=== PATIENT | male | born 1985 | race Caucasian/White ===

== ENCOUNTER → 2018-02-02 12:48 | Outpatient (CLI) | payer OTHER, MEDICARE, SELFPAY ==
--- NOTE | 2018-02-02 13:10 | IR_ITS ---
XR 2 view 2-3V lumbar spine, IR Myelogram Spine -Thoracic, IR Myelogram Spine- Lumbosacral Ordering Physician: Pablo Wilder Patient Age: 32 years: Male HISTORY: ITS.REASON: PAIN PRE MYLEOGRAM .. Chronic back pain. Increasing back pain recently. Recently pain most severe right buttock region. TECHNIQUE: 1. Lumbar spine AP and lateral 2. Lumbar myelogram with lumbar puncture by Dr. Mustafa . 3. Thoracic myelogram COMPARISON :Previous CT abdomen/pelvis 2015 views of lumbar spine ===== LUMBAR SPINE AP AND LATERAL . This study was performed to see if there are any new features, establish baseline and to evaluate the depth for the needle placement for LP. Sacralization at L4/5 to the left again noted. The patient has a stimulator device overlying the left buttock. This is again noted and was it appears similar to previous studies. Leads from this extend thoracic spine . There are also some other smaller thin wire-like areas seen overlying the back previous device . Also note the patient has had a ventral hernia repair with associated findings. LUMBAR MYELOGRAM. Lumbar puncture performed by Dr. Mustafa radiology. 3 minute 3 seconds fluoroscopy time utilized for both the lumbar and thoracic myelogram . Following sterile preparation and local skin anesthesia as well as deep Xylocaine, lumbar puncture performed under fluoroscopy at the L4/5 level . Isovue M 200 utilized. Total ~r 25 cc in this large patient this study both lumbar and thoracic spine. The lumbar myelogram shows no prominent findings. The rightward exiting nerve roots appear normal. Unremarkable. On the left the is a very minor suspect disc bulge left at L4/5 slightly indenting anterior thecal sac. This is actually very near the needle myelogram needle entry site THORACIC MYELOGRAM. Contrast was directed towards the thoracic spine. Using multiple maneuvers.-With patient prone we tilted the table downward with to its maximum point. We also used the patient laying lateral physician as well as patient turning from prone to supine position in order to direct contrast towards the upper thoracic canal.. Subsequent thoracic CT is most useful in evaluating the thoracic canal and provides visualization to the thoracic spine. Current plain films do demonstrate the neural stimulator device posterior to the T8-9 level. Just inferior to this we would note that there is a indentation upon the thecal sac due to the small leftward disc protrusion at T11-12. Noted on subsequent CT.. . IMPRESSION: ...... 1. Initial 2 view lumbar spine: demonstrates the stimulator device overlying the left buttock with leads extending superiorly. Sacralization of L5 to the left again noted.. Narrowing at L5/S1 again noted. & Anatomy stable since prior old studies studies 2. LUMBAR MYELOGRAM: shows only very slight epidural indentation to left at L4/5 level. Slightly less filling of the nerve root sleeve here. This corresponds mild leftward disc bulge L4/5 seen best on on subsequent CT. (I would also note that this was near the region of the lumbar puncture). 3. THORACIC MYELOGRAM performed but the thoracic CT images are much more optimal for evaluation here.. Thoracic myelogram images do show epidural indentation from the small disc protrusion at T11/12 level. The other minimal features are better visualized on the CT. 4. spinal stimulator device is seen posterior to the T8 & T9 level
--- NOTE | 2018-02-02 13:11 | CT_ITS ---
CT thoracic spine wo con, post myelogram CT lumbar spine wo con ; post myelogram CT sacrum included Ordering Physician: Pablo Wilder Patient Age: 32 years: Male HISTORY: ITS.REASON: THORACIC AND LUMBAR PAIN Patient describes recent severe pain right buttock. Different from a patient's chronic back pain. Patient has spinal stimulator TECHNIQUE: Thin section axial helical CT scanning performed through the thoracic & lumbar spine. CT imaging 20 minutes subsequent to lumbar/thoracic myelogram procedure, performed by Dr. Mustafa\ From the acquired thin section sagittal and coronal and thickened axial reconstruction images performed on CT workstation as well as and lies on the radiologist workstation. . All CT scans at this facility used one or more dose reduction techniques , viz: automatic exposure control, ma/Kv adjustment per patient's size, (including targeted exam where dose matched to the indication; i.e. head); or iterative reconstruction technique COMPARISON :2008 CT thoracic & lumbar spine FINDINGS The sacrum included, appears intact and stable down to S5 level. The patient does have generous caliber foramen at the sacrum, symmetric bilaterally with no remarkable tarlov cyst or other features associated. Mild sclerosis reflecting mild chronic changes margins SI joints bilaterally. . hypertrophic facet changes seen bilaterally particularly at L4/5 L3/4. Progression of facet arthropathy most pronounced to the right at L4/5 L5 is transitional in nature: sacralization on left; lumbarization on right. No 5/S1 disc space reflects this transitional character. No disc bulge or protrusion. Mild sclerosis about this pseudarthrosis is similar to previous 2008 exam. L4/5.* leftward disc bulge/with perhaps broad-based mild disc protrusion here to the left. Features do indent thecal sac the left particularly anterior left corner of thecal sac. Features encroach upon the left foramen. In 2009 there was a mild central disc bulge at this level. . Scant epidural contrast overlying thecal sac to the left recent procedure. This may also yield less filling of the left L4 nerve root Also Very subtle vertical line at base of L5 pedicle bilaterally was seen on previous CT abdomen reconstructions December 2015. Appears stable and likely related to vascular channel on corresponding axial image L3/4 stable mild leftward eccentric disc bulge, most evident towards left foramen.. L2/3. Disc intact L1/2 disc intact. T12/L1. Minor disc space narrowing The thoracic cord appears normal in caliber and signal. Conus ends appropriately L1 T11/12..* Broadbase, small Mixed disc protrusion leftward. Left Midline & left paracentral; indenting the thecal sac & just abutting the anterior aspect of lower thoracic cord. There is been Slight progression small undulating hard disc to the left since 2009 CT... w More evident Schmorl's node defect at the posterior superior endplate T12 T10/11. Disc intact. Neural foramen unremarkable. T9/10.: Disc intact T8/9.: Mild disc space narrowing, but disc Intact along its posterior margin . Neurostimulator device is seen overlying the thecal sac at midline at T8 and T9 with lead passing between the T9 &-T10 spinous processes T 7/8: Scant tiny hard disc to left, very slightly indents thecal sac the left T6/7: minimal hard disc to the right paracentral. Very slightly indents thecal sac to the right laterally T5/6: disc intact T 4/5:.*Broad-based hard disc to left, & left paracentral-slightly indents thecal sac leftward T3/4. The sagittal view nicely demonstrates a small/moderate midline central disc protrusion.. Does abut & mildly effacing the cervical cord at midline T2/3. Mild mixed mainly hard disc midline & to the left, mildly indents theca
[2018-02-02 14:53] LABS: Glucose,CSF 62 mg/dL (40-70); Total Protein,CSF 41.2 mg/dL (15-45)
[2018-02-02 15:55] LABS: Appearance,CSF Clear (Clear); Red Blood Cell,CSF 2 cells/uL (0); Volume,CSF 4.5 mL; White Blood Cell,CSF 1 cells/uL (0-5)
[2018-02-02 16:02] LABS: Mononuclear WBCs,CSF 0 %; Polynuclear WBCs,CSF 100 %
== END ==
PROVIDERS: Family Provider Family Medicine; PCP Surgery; Visit Provider Orthopaedic Surgery
DX: M54.6 Pain in thoracic spine (principal); M54.5 Low back pain
CPT/HCPCS: 62303; 62304; 72100; 72128; 72129; 72131; 72132; 82945; 84155; 89051; Q9966

== ENCOUNTER → 2018-04-23 10:02 | Outpatient (CLI) | payer OTHER, MEDICARE, SELFPAY ==
--- NOTE | 2018-04-23 10:04 | NM_ITS ---
NM gastric emptying study CLINICAL INDICATION: Vomiting upon awakening with stomach pain ITS.REASON: possible gastroparesis ORDERING PHYSICIAN: Avinash Loyd MD PATIENT AGE: 32 years Comparison: None DOSE: 0.60 mCi technetium sulfa colloid in radio labeled meal. FINDINGS: One half emptying time is within normal limits at 78 minutes. 43% gastric contents had emptied at 89 minutes. Images submitted show no evidence of reflux IMPRESSION: One half empty in time is within normal limits at 78 minutes. Normal equals 60 +/- 30 minutes. Previous exam of 02/01/2014 showed a one half emptying time of 42 minutes. Although the imaging time is within normal limits in has increased since the previous exam
--- NOTE | 2018-04-23 10:25 | HMH.ITSHM ---
pramipexole naproxen gabapentin carvedilol bupropion [facility]
[2018-04-23 12:32] LABS: Basophils % 0.6 % (0.1-2.0); Eosinophils # 0.1 K/mm3 (0.0-0.4); Eosinophils % 1.6 % (0.1-12.0); Hematocrit 50.3 % (42.0-52.0); Hemoglobin 16.9 g/dL (14.1-18.0); Lymphocytes # 1.5 K/mm3 (0.7-4.5); Lymphocytes % 26.4 K/mm3 (10-50); Mean Corpuscular HGB Conc 33.5 g/dL (31.8-35.4); Mean Corpuscular Hemoglobin 30.4 pg (27.0-31.2); Mean Corpuscular Volume 90.7 fl (80-94); Mean Platelet Volume 7.7 fl (7.4-10.4); Monocytes # 0.4 K/mm3 (0.1-1.0); Neutrophils # 3.8 K/mm3 (1.8-7.8); Neutrophils % 64.6 % (37.0-80.0); Platelet Count 273 K/mm3 (142-424); Red Blood Count 5.55 M/mm3 (4.60-6.20); Red Cell Distribution Width 13.2 % (11.5-17.5); White Blood Count 5.9 K/mm3 (4.8-10.8)
[2018-04-23 13:35] LABS: Alanine Aminotransferase 33 U/L (12-78); Albumin Level 4.3 gm/dL (3.4-5.0); Albumin/Globulin Ratio 1.5 (1.1-1.8); Alkaline Phosphatase 52 U/L (46-116); Anion Gap 8.5 mEq/L (5-15); Aspartate Amino Transferase 13 U/L (15-37); Bilirubin,Total 0.6 mg/dL (0.2-1.0); Blood Urea Nitrogen 26 mg/dL (7-18); Calcium 9.4 mg/dL (8.5-10.1); Carbon Dioxide 32 mmol/L (21.0-32.0); Chloride 103 mmol/L (98-107); Creatinine,Serum 1.06 mg/dL (0.70-1.30); Estimated Glomerular Filt Rate 80 ml/min (>60); GFR (African American) 97 ML/MIN (>60); Globulin 2.8 gm/dl (1.3-3.2); Glucose 105 mg/dL (74-106); Potassium 4.5 mmoL/L (3.5-5.1); Sodium 139 mmol/L (136-145); Total Protein,Serum 7.1 gm/dL (6.4-8.2)
== END ==
PROVIDERS: Family Provider Family Medicine; PCP Surgery; Visit Provider Surgery
DX: R10.9 Unspecified abdominal pain (principal)
CPT/HCPCS: 36415; 78264; 80053; 85025; A9541

== ENCOUNTER 2023-11-14 08:04 | Emergency (ER) | payer BC, MEDICARE, SELFPAY ==
[2023-11-14 08:30] VITALS: BP 138/77; PULSE 91; RESP 19; TEMP 36.7; O2SAT 97; BMI 40.4
[2023-11-14 08:47] LABS: Coronavirus 19, PCR Not Detected (NotDetected); Influenza A, PCR Not Detected (NotDetected); Influenza B, PCR Not Detected (NotDetected)
--- NOTE | 2023-11-14 09:18 | EXP.UTC ---
Discharge Plan Disposition Patient Disposition: Home, Self-Care Condition: Good Prescriptions Prescriptions: New methylprednisolone [Medrol (Jerad)] 4 mg tablets,dose pack See Rx Instructions .Route .COMPLEX 6 Days Qty: 21 0RF Rx Instructions: taper pack; guaifenesin [Mucinex] 600 mg tablet extended release 12hr 1,200 mg PO BID PRN (Reason: cough) Qty: 20 0RF azithromycin [Zithromax Z-Jerad] 250 mg tablet See Rx Instructions .ROUTE .COMPLEX 5 Days Qty: 6 0RF Rx Instructions: For 250 mg dose pack: take 500 mg today (day 1), then 250 mg for 4 days (days 2-5) No Action esomeprazole magnesium [Nexium] 40 mg capsule,delayed release(DR/EC) 40 mg PO DAILY naproxen 500 mg tablet 500 mg PO BID gabapentin [Neurontin] 600 mg tablet 600 mg PO DAILY diazepam [Valium] 2 mg tablet 2 mg PO BID cholecalciferol (vitamin D3) 50,000 unit capsule 50,000 unit PO QWEEK pramipexole [Mirapex] 0.5 mg tablet 0.5 mg PO QHS carvedilol [Coreg] 25 mg tablet 25 mg PO BID sertraline [Zoloft] 100 mg tablet 100 mg PO DAILY bupropion HCl [Wellbutrin XL] 300 mg tablet extended release 24 hr 300 mg PO DAILY furosemide 10 mg/mL solution 10 mg PO DAILY cyclobenzaprine 5 mg tablet 5 mg PO TID PRN Referrals Follow up/Referrals: Kat Mars MD [Primary Care Provider] - See instructions Activity Restrictions/Add. Instructions Additional Instructions/Restrictions: Start antibiotic today. Be sure to complete entire prescription even if feeling better Monitor temp. Tylenol every 4 hours as needed and / or ibuprofen every 6 hours as needed ( As long as your primary care physician has told you that it ok to take both. For fever/aches/pains ER if no less than 101 despite Tylenol or Motrin Humidifier/vaporizer or hot steamy shower Inhaler every 4-6 hours as needed like we discussed. If unsure how to use it, ask pharmacist to demonstrate how. Should help open airways and improve cough, wheezing, and shortness of breath Mucinex for your cough Be sure to drink lots of water. *Start steroid today. Helps with inflammation therefore, cough and wheezing. Follow directions on the package. Reviewed side effects. Patient reports taking them before. Follow up IMMEDIATELY for new or worsening of symptoms OR no noticeable improvement over the next 48-72 hours. 911 immediately for any life threatening symptoms such as chest pain or difficulty breathing Clinical Impressions Clinical Impression: Sinusitis, Bronchitis Instructions Patient Instructions: DI for Sinusitis, Acute Bronchitis Discharge ED Provider[place] [facility] [place] General Stated complaint: congestion, Mode of Arrival: Ambulatory Source of Information: Patient Limitations: No Limitations Time Seen by Provider: 11/14/23 09:18 Description of Symptoms (Recalled from Triage Doc. by RN): PATIENT C/O CHEST CONGESTION, PRODUCTIVE COUGH, AND NO TASTE/SMELL X 1 WEEK HEENT Symptoms (Recalled from RN notes): Yes Resp Symptoms (Recalled from RN notes): Yes Skin Symptoms (Recalled from RN notes): No MS Symptoms (Recalled from RN notes): No Functional Status (Recalled from RN notes): WNL History of Present Illness Provider Complaint: Patient states that he has been sick for over a week States that he has been having sinus congestion, chest congestion, productive cough at time and now loosing his voice States he has been taking mucinex but not got any better Related Data Home Medications Medication Instructions Recorded Confirmed bupropion HCl 300 mg 24 hr tablet, 300 mg PO DAILY 04/15/18 02/16/19 extended release (Wellbutrin XL) carvedilol 25 mg tablet (Coreg) 25 mg PO BID 04/15/18 02/16/19 cholecalciferol (vitamin D3) 1,250 50,000 unit PO QWEEK 04/15/18 02/16/19 mcg (50,000 unit) capsule cyclobenzaprine 5 mg tablet 5 mg PO TID PRN 04/15/18 02/16/19 diazepam 2 mg tablet (Valium) 2 mg PO BID 04/15/18 02/16/19 esomeprazole magnesium 40 mg 40 mg PO DAILY 04/15/18 02/16/19 capsule,delayed release (Nexium) furosemide 10 mg/mL oral solution 10 mg PO DAILY 04/15/18 02/16/19 gabapentin 600 mg tablet 600 mg PO DAILY 04/15/18 02/16/19 (Neurontin) naproxen 500 mg tablet 500 mg PO BID 04/15/18 02/16/19 pramipexole 0.5 mg tablet (Mirapex) 0.5 mg PO QHS 04/15/18 02/16/19 sertraline 100 mg tablet (Zoloft) 100 mg PO DAILY 04/15/18 02/16/19 Previous Rx's Medication Instructions Recorded azithromycin 250 mg tablet See Rx Instructions PO .COMPLEX 5 11/14/23 (Zithromax Z-Jerad) days #6 tabs guaifenesin 600 mg tablet, 1,200 mg (2 x 600 mg) PO BID PRN 11/14/23 extended release 12 hr (Mucinex) cough #20 tabs methylprednisolone 4 mg tablets in See Rx Instructions .Route 11/14/23 a dose pack (Medrol (Jerad)) .COMPLEX 6 days #21 tabs Allergies Allergy/AdvReac Type Severity Reaction Status Date / Time oxycodone [From OXYCONTIN] Allergy Mild Verified 02/16/19 09:12 Penicillins Allergy Mild Verified 02/16/19 09:12 Worker's Comp Is this a Worker's Comp case?: No [facility] Disclaimer: The information contained in this section may have been updated after the patient was seen, as this information can be updated by other users. Social History Smoking Status: Never smoker alcohol intake: never current occupational status: unemployed Travel in the last 8 weeks: None ROS Obtained: Yes All systems reviewed & no additional complaints except as documented and Yes Systems reviewed as appropriate & no additional complaints except as documented Constitutional Constitutional: Reports system reviewed and no additional complaints, except as documented, Reports as per HPI and Reports headache(s) ENT Ears, Nose, Mouth, and Throat: Reports system reviewed and no additional complaints, except as documented, Reports as per HPI, Reports headache(s), Reports sinus pain, Reports sinus pressure and Reports sore throat Cardiovascular Cardiovascular: Reports system reviewed and no additional complaints, except as documented and Reports as per HPI Respiratory Respiratory: Reports system reviewed and no additional complaints, except as documented, Reports as per HPI, Denies shortness of breath, Reports chest congestion and Reports cough Gastrointestinal Gastrointestingal: Reports system reviewed and no additional complaints, except as documented and as per HPI Neurologic Neurologic: Reports headache(s) Physical Exam General General appearance: alert and in no apparent distress ENT ENT exam: Present mucous membranes moist Expanded ENT Exam Nose exam: Present sinus tenderness Throat exam: Present other (Pharyngeal erythema noted with PND) Respiratory Respiratory exam: Present normal lung sounds bilaterally; Absent respiratory distress or wheezes Cardiovascular Cardiovascular exam: Present regular rate, normal rhythm and normal heart sounds Abdominal Exam Abdominal exam: Present soft and normal bowel sounds; Absent distention or tenderness Neurological Exam Neurological exam: Present alert, oriented X3 and normal gait Medical Decision Making George Inquiry Pt receiving controlled substance: No George was queried for this patient: No Vital Signs: 11/14/23 08:30 Temperature 98.1 F Temperature Source Oral Pulse Rate [Left Brachial] 91 H Respiratory Rate 19 Blood Pressure [Left Arm] 138/77 Blood Pressure Mean [Left Arm] 97 Blood Pressure Source [Left Arm] Automatic Cuff Blood Pressure Position [Left Arm] Sitting 02 Sat by Pulse Oximetry 97 Oxygen Delivery Method Room Air Lab Data Lab results reviewed: Yes I reviewed the patient's lab results. Orders (Tests/Meds): ORDERS Category Date Time Status Rapid PCR Covid and Flu A/B Stat Lab 11/14/23 08:34 Received Medical Decision Narrative: Patient states that he is a diabetic but has taken azithromycin and Medrol in the past without complications or reactions
[2023-11-14 09:31] VITALS: BP 138/77; PULSE 91; RESP 19; TEMP 36.7; O2SAT 97
== END 2023-11-14 09:36 | disposition home or self-care (01) ==
PROVIDERS: Emergency Provider Nurse Practitioner; PCP Family Medicine
DX: J40 Bronchitis, not specified as acute or chronic (principal); J01.90 Acute sinusitis, unspecified; R05.9 Cough, unspecified; R09.81 Nasal congestion; R43.9 Unspecified disturbances of smell and taste; R51.9 Headache, unspecified
CPT/HCPCS: 87636; 99204; 99212; G0463

== ENCOUNTER 2024-08-22 08:25 | Emergency (ER) | payer OTHER, MEDICARE, SELFPAY ==
[2024-08-22 08:45] VITALS: BP 148/94; PULSE 79; RESP 19; TEMP 36.9; O2SAT 98; BMI 41.6
--- NOTE | 2024-08-22 09:01 | ED_ITS ---
Discharge Plan Disposition Patient Disposition: Home, Self-Care Condition: Good Prescriptions Prescriptions: New azithromycin [Zithromax Z-Jerad] 250 mg tablet See Rx Instructions .ROUTE .COMPLEX 5 Days Qty: 6 0RF Rx Instructions: For 250 mg dose pack: take 500 mg today (day 1), then 250 mg for 4 days (days 2-5) benzonatate 100 mg capsule 100 mg PO TID PRN (Reason: cough) Qty: 30 0RF No Action azithromycin [Zithromax Z-Jerad] 250 mg tablet See Rx Instructions .ROUTE .COMPLEX 5 Days Qty: 6 0RF Rx Instructions: For 250 mg dose pack: take 500 mg today (day 1), then 250 mg for 4 days (days 2-5) cyclobenzaprine 10 mg tablet 10 mg PO TID Patient Comments: TAKE 1 TABLET 3 TIMES A DAY BY ORAL ROUTE NEEDED. carvedilol 25 mg tablet 25 mg PO BID Patient Comments: TAKE 1 TABLET BY MOUTH TWICE A DAY famotidine 40 mg tablet 40 mg PO DAILY Patient Comments: TAKE 1 TABLET BY MOUTH EVERY EVENING NEEDED sertraline 100 mg tablet 100 mg PO DAILY trazodone 100 mg tablet 100 mg PO HS Patient Comments: TAKE 2 TABLETS BY MOUTH NEEDED AT BEDTIME ropinirole 0.25 mg tablet 0.25 mg PO HS Patient Comments: TAKE 1 TABLET BY MOUTH ONCE DAILY FOR 2 DAYS, THEN INCREASE TO 2 TABLETS DAILY lisinopril 10 mg tablet 10 mg PO DAILY Patient Comments: TAKE 1 TABLET BY MOUTH EVERY DAY metformin 500 mg tablet extended release 24 hr 2,000 mg PO HS Patient Comments: TAKE 4 TABLETS BY MOUTH EVERY DAY AT BEDTIME rosuvastatin 10 mg tablet 10 mg PO PM Patient Comments: TAKE 1 TABLET BY MOUTH EVERY DAY IN THE EVENING Referrals Follow up/Referrals: Provider,Referral, MD [Primary Care Provider] - See instructions Activity Restrictions/Add. Instructions Additional Instructions/Restrictions: *Monitor Temp, Over the counter Motrin or Tylenol as directed/as needed Tylenol every 4 hours and Motrin every 6 hours (as long as your family doctor has told you that you can take it) for fever or pain. and straight to ER if unable to lower temp less than 101.0 after medication given *Warm salt water gargles may help to soothe the throat *Throat Lozenges? *Warm fluids like tea with honey may help to soothe the throat? *Sleep elevated *Humidifier/Vaporizer Take medication as prescribed Your throat swab was sent for culture. Those results are typically sent to your primary care. Be sure to follow up in 2-3 days with your family doctor/primary care physician if no improvement so they can review those result and treat if necessary. If you don?t have a primary care doctor, I recommend you get one but in the mean time, you will have to return to a walk in clinic Follow up IMMEDIATELY for new or worsening symptoms or no Noticeable improvement over the next 48-72 hours. 911 for difficulty breathing or swallowing Clinical Impressions Clinical Impression: Otitis media Instructions Patient Instructions: Middle Ear Infection, Sore Throat Print Language Print Language: Uzbek Discharge ED Provider: [place] Yip [facility] [place] General Stated complaint: congestion, weakness, cough Mode of Arrival: Ambulatory Source of Information: Patient Limitations: No Limitations Time Seen by Provider: 08/22/24 09:01 Description of Symptoms (Recalled from Triage Doc. by RN): PATIENT C/O CONGESTION, SORE THROAT, COUGH, NO ENERGY AND RIGHT EAR PAIN X 3 DAYS HEENT Symptoms (Recalled from RN notes): Yes Resp Symptoms (Recalled from RN notes): Yes Skin Symptoms (Recalled from RN notes): No MS Symptoms (Recalled from RN notes): No Functional Status (Recalled from RN notes): WNL History of Present Illness Provider Complaint: Patient states that for the last 3-4 days he has been having pain in his right ear, sore throat, body aches and fatigue States that he has also had a cough and at times coughing up some mucous so today when he was still not feeling any better he came in to get checked Related Data Home Medications ?Medication ?Instructions ?Recorded ?Confirmed carvedilol 25 mg tablet 25 mg PO BID 08/22/24 08/22/24 cyclobenzaprine 10 mg tablet 10 mg PO TID 08/22/24 08/22/24 famotidine 40 mg tablet 40 mg PO DAILY 08/22/24 08/22/24 lisinopril 10 mg tablet 10 mg PO DAILY 08/22/24 08/22/24 metformin 500 mg tablet,extended 2,000 mg PO HS 08/22/24 08/22/24 release 24 hr ropinirole 0.25 mg tablet 0.25 mg PO HS 08/22/24 08/22/24 rosuvastatin 10 mg tablet 10 mg PO PM 08/22/24 08/22/24 sertraline 100 mg tablet 100 mg PO DAILY 08/22/24 08/22/24 trazodone 100 mg tablet 100 mg PO HS 08/22/24 08/22/24 Previous Rx's ?Medication ?Instructions ?Recorded azithromycin 250 mg tablet See Rx Instructions PO .COMPLEX 5 08/22/24 (Zithromax Z-Jerad) days #6 tabs benzonatate 100 mg capsule 100 mg PO TID PRN cough #30 caps 08/22/24 Allergies Allergy/AdvReac Type Severity Reaction Status Date / Time oxycodone (From OXYCONTIN) Allergy Mild Verified 02/16/19 09:12 Penicillins Allergy Mild Verified 02/16/19 09:12 Worker's Comp Is this a Worker's Comp case?: No [facility] Disclaimer: The information contained in this section may have been updated after the patient was seen, as this information can be updated by other users. Social History Smoking Status: Never smoker alcohol intake: never current occupational status: unemployed Travel in the last 8 weeks: None Have you lived/traveled outside [place] in past 30 days?: No Contact w/someone who lives/traveled outside US past 30 days?: No Exposure to someone with infectious disease in past 14 days?: No Do you have a fever (greater than 100.4 F or 38 C)?: No Have you tested positive for COVID-19: No Exposed to someone with COVID-19 in past 14 days?: No Do you have a sore throat?: Yes Do you have a cough?: Yes Do you have any weakness?: No Do you have any diarrhea?: No Are you experiencing any unusual bleeding?: No Do you have any muscle aches/pain?: No Do you have any abdominal pain?: No Are you experiencing loss of taste or smell?: No ROS Obtained: Yes All systems reviewed & no additional complaints except as documented and Yes Systems reviewed as appropriate & no additional complaints except as documented Constitutional Constitutional: Reports system reviewed and no additional complaints, except as documented, Reports as per HPI, Reports body ache, Reports chills and Reports headache(s) ENT Ears, Nose, Mouth, and Throat: Reports system reviewed and no additional complaints, except as documented, Reports as per HPI, Reports otalgia, Reports headache(s), Reports nasal congestion, Reports nasal discharge and Reports sore throat Cardiovascular Cardiovascular: Reports system reviewed and no additional complaints, except as documented and Reports as per HPI Respiratory Respiratory: Reports system reviewed and no additional complaints, except as documented, Reports as per HPI, Denies shortness of breath and Reports cough Neurologic Neurologic: Reports headache(s) Physical Exam General General appearance: alert and in no apparent distress ENT ENT exam: Present mucous membranes moist Expanded ENT Exam TM/Canal exam: Right TM: erythema and bulging Nose exam: Present sinus tenderness Throat exam: Present other (Pharyngeal erythema noted with PND) Respiratory Respiratory exam: Present normal lung sounds bilaterally; Absent respiratory distress or wheezes Cardiovascular Cardiovascular exam: Present regular rate, normal rhythm and normal heart sounds Abdominal Exam Abdominal exam: Present soft and normal bowel sounds; Absent distention or tenderness Neurological Exam Neurological exam: Present alert, oriented X3 and normal gait Medical Decision Making Medical Records Screening: Per USPSTF and CDC recommendations, given the prevalence of disease in our region, it is our hospital?s policy to screen for HIV and viral Hepatitis for all patients aged 18 and over and those with ongoing risk factors. George Inquiry Pt receiving controlled substance: No George was queried for this patient: No Vital Signs: 08/22/24 08:45 Temperature 98.4 F Temperature Source Oral Pulse Rate [Left Brachial] 79 Respiratory Rate 19 Blood Pressure [Left Arm] 148/94 H Blood Pressure Mean [Left Arm] 112 Blood Pressure Source [Left Arm] Automatic Cuff Blood Pressure Position [Left Arm] Sitting 02 Sat by Pulse Oximetry 98 Oxygen Delivery Method Room Air Lab Data Lab results reviewed: Yes I reviewed the patient's lab results.
[2024-08-22 09:07] LABS: UTC Strep Screen (Rapid) Negative (Negative)
[2024-08-22 09:08] LABS: UTC Influenza A Antigen Negative (Negative); UTC Influenza B Antigen Negative (Negative)
[2024-08-22 09:09] VITALS: BP 148/94; PULSE 79; RESP 19; TEMP 36.9; O2SAT 98
== END 2024-08-22 09:12 | disposition home or self-care (01) ==
PROVIDERS: Emergency Provider Nurse Practitioner
DX: H66.93 Otitis media, unspecified, bilateral (principal)
CPT/HCPCS: 87804; 87880; 99213; G0381

== ENCOUNTER 2024-09-04 09:12 | Emergency (ER) | payer OTHER, MEDICARE, SELFPAY ==
[2024-09-04 09:35] VITALS: BP 140/80; PULSE 91; RESP 18; TEMP 36.8; O2SAT 97; BMI 40.6
--- NOTE | 2024-09-04 09:52 | ED_ITS ---
Discharge Plan Disposition Patient Disposition: Home, Self-Care Condition: Good Prescriptions Prescriptions: New cefdinir 300 mg capsule 300 mg PO BID 10 Days Qty: 20 0RF ciprofloxacin-dexamethasone 0.3-0.1 % drops,suspension 4 drp otic (ear) BID 7 Days Qty: 7.5 0RF Rx Instructions: in left ear as directed No Action bupropion HCl 300 mg tablet extended release 24 hr 300 mg PO fluticasone propionate 50 mcg/actuation spray,suspension 1 spray intranasal Patient Comments: SPRAY 1 SPRAY BY INTRANASAL ROUTE EVERY DAY cyclobenzaprine 10 mg tablet 10 mg PO TID Patient Comments: TAKE 1 TABLET 3 TIMES A DAY BY ORAL ROUTE NEEDED. carvedilol 25 mg tablet 25 mg PO BID Patient Comments: TAKE 1 TABLET BY MOUTH TWICE A DAY famotidine 40 mg tablet 40 mg PO DAILY Patient Comments: TAKE 1 TABLET BY MOUTH EVERY EVENING NEEDED sertraline 100 mg tablet 100 mg PO DAILY trazodone 100 mg tablet 100 mg PO HS Patient Comments: TAKE 2 TABLETS BY MOUTH NEEDED AT BEDTIME ropinirole 0.25 mg tablet 0.25 mg PO HS Patient Comments: TAKE 1 TABLET BY MOUTH ONCE DAILY FOR 2 DAYS, THEN INCREASE TO 2 TABLETS DAILY lisinopril 10 mg tablet 10 mg PO DAILY Patient Comments: TAKE 1 TABLET BY MOUTH EVERY DAY metformin 500 mg tablet extended release 24 hr 2,000 mg PO HS Patient Comments: TAKE 4 TABLETS BY MOUTH EVERY DAY AT BEDTIME rosuvastatin 10 mg tablet 10 mg PO PM Patient Comments: TAKE 1 TABLET BY MOUTH EVERY DAY IN THE EVENING Referrals Follow up/Referrals: Sekou Pal MD [Primary Care Provider] - See instructions Activity Restrictions/Add. Instructions Additional Instructions/Restrictions: Take medication as prescribed Use ear drops as prescribed Follow up with your Family doctor if no improvement Clinical Impressions Clinical Impression: Otitis media Instructions Patient Instructions: Ear Infections (Alternative Therapy), Middle Ear Infection Print Language Print Language: Mosotho Discharge ED Provider: [place] Yip [facility] General Stated complaint: sore throat, bilateral ear pain Mode of Arrival: Ambulatory Source of Information: Patient Limitations: No Limitations Time Seen by Provider: 09/04/24 09:52 Description of Symptoms (Recalled from Triage Doc. by RN): PATIENT C/O SORE THROAT, EAR PAIN, BODY ACHES AND WEAKNESS HEENT Symptoms (Recalled from RN notes): Yes Resp Symptoms (Recalled from RN notes): No Skin Symptoms (Recalled from RN notes): No MS Symptoms (Recalled from RN notes): No Functional Status (Recalled from RN notes): WNL History of Present Illness Provider Complaint: Patient states that he had ear infection a couple weeks ago and now the pain moved to the left ear and having sore throat and sinus congestion States today he was still not feeling any better and has completed his zpack Related Data Home Medications ?Medication ?Instructions ?Recorded ?Confirmed carvedilol 25 mg tablet 25 mg PO BID 08/22/24 09/02/24 cyclobenzaprine 10 mg tablet 10 mg PO TID 08/22/24 09/02/24 famotidine 40 mg tablet 40 mg PO DAILY 08/22/24 09/02/24 lisinopril 10 mg tablet 10 mg PO DAILY 08/22/24 09/02/24 metformin 500 mg tablet,extended 2,000 mg PO HS 08/22/24 09/02/24 release 24 hr ropinirole 0.25 mg tablet 0.25 mg PO HS 08/22/24 09/02/24 rosuvastatin 10 mg tablet 10 mg PO PM 08/22/24 09/02/24 sertraline 100 mg tablet 100 mg PO DAILY 08/22/24 09/02/24 trazodone 100 mg tablet 100 mg PO HS 08/22/24 09/02/24 bupropion HCl 300 mg 24 hr tablet, 300 mg PO 09/02/24 09/02/24 extended release fluticasone propionate 50 1 spray intranasal 09/02/24 09/02/24 mcg/actuation nasal spray,suspension Previous Rx's ?Medication ?Instructions ?Recorded cefdinir 300 mg capsule 300 mg PO BID 10 days #20 caps 09/04/24 ciprofloxacin 0.3 %-dexamethasone 4 drp otic (ear) BID 7 days #7.5 mL 09/04/24 0.1 % ear drops,suspension Allergies Allergy/AdvReac Type Severity Reaction Status Date / Time oxycodone (From OXYCONTIN) Allergy Mild Verified 09/02/24 09:57 Penicillins Allergy Mild Verified 09/02/24 09:57 Worker's Comp Is this a Worker's Comp case?: No [facility] Disclaimer: The information contained in this section may have been updated after the patient was seen, as this information can be updated by other users. Medical History (Updated 09/04/24 @ 10:01 by [place] Yip APRN) Hypertension Hyperlipidemia Diabetes mellitus History of inguinal hernia Surgical History (Updated 09/02/24 @ 10:00 by Meseret Solorzano) History of back surgery History of tonsillectomy History of cholecystectomy Family History (Updated 09/02/24 @ 10:01 by Meseret Solorzano) Grandfather Cancer Grandfather Lupus Grandmother Diabetes Social History (Updated 09/02/24 @ 10:02 by Meseret Solorzano) Smoking Status: Never smoker second hand exposure: No alcohol intake: never substance use type: denies use current occupational status: disabled Travel in the last 8 weeks: None household members: spouse and children housing: house marital status: Have you lived/traveled outside US in past 30 days?: No Contact w/someone who lives/traveled outside US past 30 days?: No Exposure to someone with infectious disease in past 14 days?: No Do you have a fever (greater than 100.4 F or 38 C)?: No Have you tested positive for COVID-19: No Exposed to someone with COVID-19 in past 14 days?: No Do you have a sore throat?: Yes Do you have a cough?: No Do you have any weakness?: No Do you have any diarrhea?: No Are you experiencing any unusual bleeding?: No Do you have any muscle aches/pain?: No Do you have any abdominal pain?: No Are you experiencing loss of taste or smell?: No ROS Obtained: Yes All systems reviewed & no additional complaints except as documented and Yes Systems reviewed as appropriate & no additional complaints except as documented Constitutional Constitutional: Reports system reviewed and no additional complaints, except as documented and Reports as per HPI ENT Ears, Nose, Mouth, and Throat: Reports system reviewed and no additional complaints, except as documented, Reports as per HPI, Reports otalgia, Reports nasal congestion and Reports sore throat Cardiovascular Cardiovascular: Reports system reviewed and no additional complaints, except as documented and Reports as per HPI Respiratory Respiratory: Reports system reviewed and no additional complaints, except as documented and Reports as per HPI Gastrointestinal Gastrointestingal: Reports system reviewed and no additional complaints, except as documented and as per HPI Musculoskeletal Musculoskeletal: Reports system reviewed and no additional complaints, except as documented and Reports as per HPI Physical Exam General General appearance: alert and in no apparent distress ENT ENT exam: Present mucous membranes moist Expanded ENT Exam TM/Canal exam: Left TM: bulging and Bilateral TM: erythema (worse on left) Respiratory Respiratory exam: Present normal lung sounds bilaterally; Absent respiratory distress or wheezes Cardiovascular Cardiovascular exam: Present regular rate, normal rhythm and normal heart sounds Abdominal Exam Abdominal exam: Present soft and normal bowel sounds; Absent distention or tenderness Neurological Exam Neurological exam: Present alert, oriented X3 and normal gait Medical Decision Making Medical Records Screening: Per USPSTF and CDC recommendations, given the prevalence of disease in our region, it is our hospital?s policy to screen for HIV and viral Hepatitis for all patients aged 18 and over and those with ongoing risk factors. George Inquiry Pt receiving controlled substance: No George was queried for this patient: No Vital Signs: 09/04/24 09:35 Temperature 98.3 F Temperature Source Oral Pulse Rate [Left] 91 H Respiratory Rate 18 Blood Pressure [Left Arm] 140/80 Blood Pressure Mean [Left Arm] 100 Blood Pressure Source [Left Arm] Automatic Cuff Blood Pressure Position [Left Arm] Sitting 02 Sat by Pulse Oximetry 97 Oxygen Delivery Method Room Air Lab Data Lab results reviewed: Yes I reviewed the patient's lab results. Medical Decision Narrative: Patient states that he is allergic to PCN but has taken Cefdnir in the past without reactions or complications
[2024-09-04 09:57] LABS: UTC Strep Screen (Rapid) Negative (Negative)
[2024-09-04 10:02] VITALS: BP 140/80; PULSE 91; RESP 18; TEMP 36.8; O2SAT 97
== END 2024-09-04 10:04 | disposition home or self-care (01) ==
PROVIDERS: Emergency Provider Nurse Practitioner; PCP Family Medicine
DX: H66.93 Otitis media, unspecified, bilateral (principal)
CPT/HCPCS: 87880; 99213; G0381

== ENCOUNTER 2024-12-14 10:25 | Outpatient (CLI) | payer OTHER, MEDICARE, SELFPAY ==
[2024-12-14 16:37] LABS: Basophils # 0.1 K/mm3 (0-0.2); Basophils % 0.9 % (0.1-2.0); Eosinophils # 0.2 K/mm3 (0.0-0.4); Eosinophils % 4.2 % (0.1-12.0); Hematocrit 46.1 % (42.0-52.0); Lymphocytes # 1.5 K/mm3 (0.7-4.5); Lymphocytes % 26.7 % (10-50); Mean Corpuscular HGB Conc 32.5 g/dL (31.8-35.4); Mean Corpuscular Volume 92.2 fl (80-94); Mean Platelet Volume 11.3 fl (7.4-10.4); Monocytes # 0.4 K/mm3 (0.1-1.0); Monocytes % 6.4 % (1.7-9.3); Neutrophils # 3.4 K/mm3 (1.8-7.8); Neutrophils % 61.4 % (37.0-80.0); Nucleated Red Blood Cells # 0 10^3/uL; Nucleated Red Blood Cells % 0 %; Platelet Count 182 K/mm3 (142-424); Red Cell Distribution Width 12.9 % (11.5-17.5); Red Cell Distribution Width-SD 43.9 fL; White Blood Count 5.5 K/mm3 (4.8-10.8)
[2024-12-14 17:04] LABS: Alanine Aminotransferase 79 U/L (12-78); Albumin Level 4.3 g/dl (3.5-5.0); Albumin/Globulin Ratio 1.4 (1.1-1.8); Alkaline Phosphatase 75 U/L (38-126); Anion Gap 16.5 mEq/L (5-15); Aspartate Amino Transferase 104 U/L (17-59); Bilirubin,Total 0.6 mg/dl (0.2-1.3); Blood Urea Nitrogen 9 mg/dl (9-20); Carbon Dioxide 29 mmol/L (22.0-30.0); Chloride 96 mmol/L (98-107); Chol/HDL Ratio 3.5 (1-3.5); Cholesterol 98 mg/dl (140-200); Estimated Glomerular Filt Rate 148 ml/min (>60); GFR (African American) 180 ML/MIN (>60); Glucose 192 mg/dl (74-100); HDL Cholesterol 28 mg/dl (40-60); Potassium 4.5 mmoL/L (3.5-5.1); Sodium 137 mmol/L (136-145); Total Protein,Serum 7.3 g/dl (6.3-8.2); Triglycerides 309 mg/dl (30-150); VLDL Cholesterol 62 mg/dL (0-40)
[2024-12-14 17:08] LABS: Hemoglobin A1C 8.4 % (4.0-6.0)
[2024-12-14 17:21] LABS: T4 (Thyroxine) 11.2 ug/dl (5.53-11.0)
[2024-12-14 17:22] LABS: 25-OH Vitamin D, Total 26.9 ng/mL (30-100)
[2024-12-14 17:34] LABS: Thyroid Stimulating Hormone 1.59 uIU/mL (0.465-4.68)
[2024-12-14 17:49] LABS: HIV Combo NEGATIVE (Negative)
[2024-12-14 17:56] LABS: Hepatitis C Ab Qual. W/ RFX NEGATIVE (Negative)
[2024-12-14 18:44] LABS: Direct LDL Cholesterol 32.21 mg/dL (100-129)
== END 2024-12-14 23:59 | disposition home or self-care (01) ==
LOC: LAB.DROPOF 12-15 10:13
PROVIDERS: PCP Nurse Practitioner Family; Visit Provider Nurse Practitioner Family
DX: Z11.4 Encounter for screening for human immunodeficiency virus [HIV] (principal); E78.5 Hyperlipidemia, unspecified; I10 Essential (primary) hypertension; E11.9 Type 2 diabetes mellitus without complications; Z98.890 Other specified postprocedural states; Z79.84 Long term (current) use of oral hypoglycemic drugs; Z79.85 Long-term (current) use of injectable non-insulin antidiabetic drugs; Z68.41 Body mass index [BMI] 40.0-44.9, adult; E66.9 Obesity, unspecified
CPT/HCPCS: 80053; 80061; 82306; 83036; 84436; 84443; 85025; 86803; 87389

== ENCOUNTER 2025-03-28 10:00 | Outpatient (CLI) | payer OTHER, MEDICARE, SELFPAY ==
--- OUTSIDE RECORDS SUMMARY | 2025-03-29 12:28 | XMS_ITS | Patient Health Record ---
Author Organization [facility]Magdiel Anguiano MD Address [address] [place] [address] Care Team Providers Care Foundry Technician Name Role Phone Dr Michael Reis JR Primary Care Provid er Unavailable Magdiel Anguiano Unavailable [phone] Allergies Allergen (clinical drug ingredient) Drug/Non Drug Allergy documented on EMR Reaction Allergy Type Onset Date Status penicillin V Penicillin V Potassium rash Drug Allergy Active Reason For Referral No Information Medications Medication SIG (Take, Route, Frequency, Duration) Notes Start Date End Date Status Ativan 1 MG 1 tablet 1 hr prior to test Orally qd; Duration: 1 dose 05/05/2013 Active Valium 10 MG 1 tablet as needed O rally 10mg 1hr prior to procedure 01/14/2013 Active Problems Problem Type SNOMED Code ICD Code Onset Dates Problem Status W/U Status Risk Notes Problem Macroglossia (90187145) Macroglossia (750.15) Active confirmed Problem Hypertension (56980439) Hypertension (401.9) Active confirmed Problem Laryngopharyngeal reflux (324970268) Laryngopharyngeal reflux (LPR) (478.79) Active confirmed Problem Obesity (399876285) Obesity (278.00) Active con firmed Problem Hypersomnia with sleep apnea (61827796) Sleep apnea with hypersomnolence (780.53) Active confirmed Plan Of Treatment No Information Insurance Providers Payer Name Payer Address Payer Phone Subscriber Number Group Number Insured Name Patient Relationship to Insured Coverage Start Date Coverage End Date MEDICARE [place] [address] [place] [address] [place] [address] [id number] Po Shanks Self - patient is the insured Medical (General) History Medical History History ICD Code Thyroid Disease No hypertension Yes asthma No Diabetes No Diabetes Insulin Dependent No Heart Disease No Cancer No lung cancer No kidney stones No Surgical History Surgery Date(Month/Year) tonsillectomy Prostate Urinary/Kidney Spine
--- OUTSIDE RECORDS SUMMARY | 2025-03-29 12:28 | XMS_ITS | Referral Summary ---
Author Organization [employer] ([place], [place], [place], [place]) Address [address] [place] [address] Care Team Providers Care Community Leader Name Role Phone Unavailable Primary Care Provider Unavailabl e Social History Tobacco Use Types Packs/Day Years Used Date Smoking Tobacco: Never Assessed Food Insecurity Answer Date Recorded Food run out past 12 months Not on file 06/01 Food did not last past 12 months Not on file 06/10/2024 Employment Answer Date Recorded Help finding and keeping a job Not on file 1 Family and Community Support Answer Kd e Recorded Help with Day to Day Activities Not on file 06/10/2024 Feeling Lonely or Isolated Not on file 06/10 Educational Attainment Answer Date Pablo rded Speak language other than Kuwaiti at home Not on file 06/10/2024 Want help with school or training Not on file 06/10/2024 Substance Use Answer Date Recorded Used prescription meds for non-medical reasons N ot on file 06/10/2024 Used illegal drugs past 12 months Not on file 06/10/2024 Sex and Gender Information Value Date Recorded Sex Assigned at Not on file Legal Sex Male 6:05 PM CDT Gender Identity Not on file Sexual Orientation Not on file Plan of Treatment Not on file Insurance [facility] CHOICE PLUS MEDICARE PART A B
--- OUTSIDE RECORDS SUMMARY | 2025-03-29 12:28 | XMS_ITS | Encounter Summary ---
Author Organization [employer] ([place], [place], [place], [place]) Address [address] [place] [address] Care Team Providers Care Foster Winder Name Role Phone Unavailable Primary Care Provider Unavailabl e Reason for Referral * Diagnostic X-Ray (Routine) - Closed Specialty Diagnoses / Procedures Referred By Contac t Referred To Contact Diagnoses Calculus of kidney Procedures X-ray abdomen KUB 1 view Jorge Quintero Jr., MD [address] [place] [address] [address] [place] [id number] Phone: tel: fax: Referral ID Status Reason Start Date Expiration Date Visits Re quested Visits Authorized [id number] Closed 06/10/2024 06/10/2025 1 1 Encounter Details Date Type Department Care Team (Late st Contact Info) Description 06/10/2024 Outside Orders [facility] [place] [facility] [address] [place] [address] [address] [place] [phone] Jorge Quintero Jr., MD [address] [place] [address] [address] [place] [id number] Calculus of kidney (Primary Dx) Social History Tobacco Use Types Packs/Day Years [...] Date Pablo rded Speak language other than Tristanian at home Not on file 06/10/2024 Want [...] on file Sexual Orientation Not on file documented as of this encounter Plan of Treatment Not on file documented as of this encounter Results * X-ray abdomen KUB 1 view (06/10/2024 10:35 AM EDT) Anatomical Region Laterality Modality Abdomen X-Ray 06/10/2024 12:1 3 PM EDT Impressions 06/10/2024 12:27 PM EDT No radioopaque upper urinary tract stones. Images reviewed, interpreted, and dictated by Dr. Praveen Bonner. Transcribed by Pastora Stein PA-C. Narrative 06/10/2024 12:27 PM EDT KUB HISTORY: Nephrolithiasis. COMPARISON: None. FINDINGS: A single view of the abdomen with a coned-down of the pelvis demonstrates an unremarkable bowel gas pattern. No abnormal calcifications are identified over the renal shadows or course of the ureters. Status post ventral hernia repair. There is a thoracic spine stimulator noted. There are multiple right upper quadrant surgical clips consistent with cholecystectomy. Procedure Note Praveen Bonner MD - 06/10/2024 KUB HISTORY: Nephrolithiasis. COMPARISON: None. FINDINGS: A single view of the abdomen with a coned-down of the pelvis demonstrates an unremarkable bowel gas pattern. No abnormal calcifications are identified over the renal shadows or course of the ureters. Status post ventral hernia repair. There is a thoracic spine stimulator noted. There are multiple right upper quadrant surgical clips consistent with cholecystectomy. IMPRESSION: No radioopaque upper urinary tract stones. Images reviewed, interpreted, and dictated by Dr. Praveen Bonner. Transcribed by Pastora Stein PA-C. us Jorge Quintero Jr., MD [facility] ORDERABLES Final Result documented in this encounter Visit Diagnoses Diagnosis Calculus of kidney- Primary Calculus of kidney documented in this encounter
--- OUTSIDE RECORDS SUMMARY | 2025-03-29 12:28 | XMS_ITS | Clinical Summary ---
Author Organization [facility] Address [address] [place] [address] Care Team Providers Care C 13 Catapult Operator Name Role Phone Sanjeev Solitario MD Primary Care Provider [phone] Family History Medical History Relation Name Comments Hypercholesterolemia Father Cardiac disorder Maternal Grandmother Diabetes Maternal Grandmother Relation Name Status Comments Father Maternal Grandmother Social History Tobacco Use Types Packs/Day Years Used Date Smoking Tobacco: Never Alcohol Use Standard Drinks/Week Comments No 0 (1 standard drink = 0.6 oz pur e alcohol) Sex and Gender Information Value Date Recorded Sex Assigned at Not on file Legal Sex Male 7:58 PM EDT Gender Identity Not on file Sexual Orientation Not on file Last Filed Vital Signs Vital Sign Reading Time Taken Comments Blood Pressure - - Pulse - - Temperature - - Respiratory Rate - - Oxygen Saturation - - Inhaled Oxygen Concentration - - Weight 150 kg (330 lb 1.2 oz) 03/29/2015 8:36 AM EDT Height 190.5 cm (6' 3 ) 03/29/2015 8:36 AM EDT Body Mass Index 41.26 03/29/2015 8:36 AM EDT Plan of Treatment Not on file Care Teams C 13 Catapult Operator Relationship Specialty Start Date End Date Sanjeev Solitario MD [address] [place] [id number] PCP - General 01/12/21
--- OUTSIDE RECORDS SUMMARY | 2025-03-29 12:28 | XMS_ITS | Clinical Summary ---
Author Organization [employer] ([place], [place], [place], [place]) Address [address] [place] [address] Care Team Providers Care Tipping Machine Operator Name Role Phone Unavailable Primary Care Provider [...] Date Pablo rded Speak language other than Malawian at home Not on file 06/10/2024 Want [...] Orientation Not on file Plan of Treatment Health Maintenance Due Date Last Done Comments Depression Screening (12+) 1995 Tobacco Cessation Counseling and Screening (12+) 1995 HIV Screening 1998 Hepatitis C Screening 2001 Medicare Initial AWV [id number] 10/03/2012 Lipid Panel 2018 COVID-19 VACCINE (3 - 4-2 5 season) 2024 11/15/2020, 10/18/2020 Influenza Vaccine (#1) 2025 DTAP/TDAP/TD VACCINES (3 - T d or Tdap) 12/26/2030 12/26/2020, 05/22/1998 Pneumococcal Vaccine: 0-49 Years Aged Out No longer eligible b ased on patient's age to complete this topic Insurance [facility] CHOICE PLUS MEDICARE PART A B
--- OUTSIDE RECORDS SUMMARY | 2025-03-29 12:28 | XMS_ITS | Clinical Summary ---
Author Organization [facility] Address [address] [place] [address] Phone Care Team Providers Care Quickbooks Bookkeeper Name Role Phone Unavailable Primary Care Provider Unavailabl e Allergies Active Allergy Reactions Criticality Noted Date Comments Oxycodone Hcl Nausea And Vomiting 07/24/2010 Oxycodone Nausea And Vomiting 07/24/2010 Penicillins Nausea And Vomiting 07/24/2010 Penicillin V potassium Medications carisoprodol (SOMA) 350 mg tablet Take 350 mg by mouth 4 times daily as needed for Muscle spasms. 2 tablets Active gabapentin (NEURONTIN) 800 mg tablet Take 800 mg by mouth 3 times daily. 2 tablets Active diazepam (VALIUM) 5 mg tablet Take by mouth 4 times daily. Active methadone (DOLOPHINE) 10 mg tablet Take 6 Tabs by mouth 2 times daily. Active Milnacipran (SAVELLA) 100 mg Tab Take 100 mg by mouth 2 times daily. Active trazodone (DESYREL) 100 mg tablet Take 2 Tabs by mouth nightly. Active valacyclovir (VALTREX) 1 g tablet Take by mouth daily. Active bisoprolol (ZEBETA) 5 mg tablet Take 5 mg by mouth daily. Active ESOMEPRAZOLE MAG TRIHYDRATE (NEXIUM ORAL) Take 40 mg by mouth 2 times daily. Active pramipexole (MIRAPEX) 0.5 mg tablet Take 0.5 mg by mouth nightly. Active multivitamin (THERAGRAN) per tablet Take 1 Tab by mouth daily. Active Surgical History Surgery Date Site/Laterality Comments TONSILLECTOMY CHOLECYSTECTOMY BACK SURGERY spinal cord stimulators x4 Medical History Medical History Date Comments Hypertension Acid reflux RSD lower limb Left leg Depression Anxiety Social History Tobacco Use Types Packs/Day Years Used Date Smoking Tobacco: Never Alcohol Use Standard Drinks/Week Comments No 0 (1 standard drink = 0.6 oz pur e alcohol) Sex and Gender Information Value Date Recorded Sex Assigned at Not on file Legal Sex Male 12:49 AM EDT Gender Identity Not on file Sexual Orientation Not on file Obstetrics History Last Filed Vital Signs Vital Sign Reading Time Taken Comments Blood Pressure 126/80 07/25/2010 8:52 AM EST Pulse 100 07/25/2010 8:50 AM EST Temperature 36.3 C (97.4 F) 07/24/2010 11:17 PM EST Respiratory Rate 18 07/25/2010 8:50 AM EST Oxygen Saturation 92% 07/25/2010 2:00 AM EST Inhaled Oxygen Concentration - - Weight 123 kg (271 lb 3 oz) 07/24/2010 6:[address] Height 190.5 cm (6' 3 ) 07/24/2010 6:31 PM EST Body Mass Index 33.9 07/24/2010 6:31 PM EST Plan of Treatment Health Maintenance Due Date Last Done Comments Annual Wellness Exam 1986 DTaP/TDaP/Td (1 - Tdap) 2002 Hepatitis B Vaccine (1 of 3 - 19+ 3-dose series) 2002 COVID-19 Vaccine ( - 2023-2 5 season) 2024 Influenza Vaccine (#1) 2025 Meningococcal B Vaccine Aged Out No l onger eligible based on patient's age to complete this topic Pneumococcal Vaccine 0-49 Aged Out No longer eligible based on patient's age to complete this topic Insurance PPO
--- OUTSIDE RECORDS SUMMARY | 2025-03-29 12:29 | XMS_ITS | Data Portability ---
Author Organization [facility] MIYA Garvin [place] CLOS[place] Address [address] [place] [address] Care Team Providers Care Community Associate Name Role Phone VAISHALI PICKETT Primary Care Provider KELI VILLEGAS Soda Tester VAISHALI PICEKTT Referring Provider Assessment No assessment recorded. Plan of Treatment Reminders Order Date Submit Date Provider Last Modified By Organization Details Last Modified Time Details Appointments None recorded . Lab urinalys is panel, auto 2023 024 [facility], [address], [address], [place], [address], 4 17:58:34 urinalys is, microsco pic 2023 024 [facility], [address] [place] [address], [address], 4 18:03:19 lipid panel, serum 2023 024 [facility], [address] [place] [address], [address], 4 15:10:30 CMP, serum or plasma 2023 024 [facility], [address] [place] [address], [address], 4 15:10:28 urinalys is, dipstick 2023 [email or web address] [facility] [place], [address] [place] [address], [address], 4 09:56:02 glycohem oglobin, total, blood 2023 024 [facility], [address] [place] [address], [address], 4 13:17:02 Referral None recorded . Procedures None recorded . Surgeries None recorded . Imaging XR, abdomen, 1 view 2023 024 [email or web address] [facility] [place], [address] [place] [address], [address], 5 15:24:05 Medication Orders doxycycl ine monohydr ate [address] [facility], [address] [place], [address], 4 17:58:34 fluticas one propiona te 50 mcg/actu ation nasal spray,bustamante spension [address] [facility], [address] [place], [address], 4 09:56:11 trazodon e 100 mg tablet [address] [facility]016, [address] [place], [address], 4 09:56:12 doxycycl ine hyclate 100 mg tablet 2023 024 [email or web address] [facility]3016, [address] [place], [address], 4 14:13:29 cycloben zaprine 10 mg tablet [address] [facility], [address] [place], [address], 4 09:56:18 pramipex ole [address] [facility], [address] [place], [address], 4 09:56:21 ondanset pankaj 4 mg disinteg rating tablet [address] [facility], [address] [place], [address], 4 09:56:12 carvedil ol 25 mg tablet [address] [facility], [address] [place], [address], 4 09:56:16 lisinopr il 10 mg tablet [address] [facility], [address] [place], [address], 4 09:56:23 sertrali ne 100 mg tablet [address] [facility], [address] [place], [address], 4 09:56:22 Wellbutr in XL 300 mg 24 hr tablet, extended release 2023 024 [email or web address] [facility] #[facility]016, [address] [place], [address], 4 13:17:49 metformi n ER 500 mg tablet,e xtended release [address] [facility], [address] [place], [address], 4 09:56:22 Ozempic 0.25 mg or 0.5 mg (2 mg/3 mL) subcutan eous pen injector [address] [facility], [address] [place], [address], 4 09:56:11 Ozempic 1 mg/dose (4 mg/3 mL) subcutan eous pen injector [address] [facility]016, [address] [place], [address], 4 09:56:22 famotidi ne [address] [facility], [address] [place], [address], 4 09:56:19 Nexium 40 mg capsule, delayed release [address] [facility], [address] [place], [address], 4 09:56:19 ropiniro le 0.[address] [facility], [address] [place], [address], 4 14:34:12 Patient TargetsNo targets recorded. Patient Instructions Encounter Date Encounter Id Patient Instructions Last Modified By Organization Details Last Modified Time 03/02/2024 [id number] f/u 8-12 weeks aerwin Not available 03/03/2024 12:05:34 03/15/2024 [id number] [facility] sumansky Not availa ble 03/15/2024 08:40:25 05/04/2024 [id number] 1. GERD: Continu e to take current medication and follow GERD precautions, discussed with the patient long-term use of Nexium might decrease chance of having osteoporosis chronic kidney disease and vitamin B12 deficiency. 2. Anxiety depression: Continue to take current medication and follow lifestyle changes, if you develop any suicidal or homicidal ideation to call 911 go to the ER. 3. Chronic low back pain: Not interested to be referred to pain management or to physical therapy can take cyclobenzaprine as needed cyclobenzaprine might make him drowsy and should not take it if planning to drive operate heavy machinery. 4. Insomnia: Use trazodone as needed, follow sleep hygiene. 5. Allergic rhinitis: Use fluticasone nasal spray as needed not to use it more than 2 months at 1 time. 6. Restless leg syndrome: Continue to take his medication, limit caffeine intake specially second half of the day and exercise. 7. Hypertension: taker his medication, follow low-salt diet, check blood pressure occasion bring a log blood pressure to next visit. 8. Morbid obesity: Cut the calories by 500-calorie day to lose 1 and half pound per week and exercise. 9. Nausea and occasional vomiting; urged patient to reschedule appointment with GI for further evaluation and management.. 10. Obstructive sleep apnea: Advised patient to continue to follow-up with the specialist and use CPAP machine. 11. Diabetes mellitus type 2: Continue to take current medication and start on Ozempic patient aware about possible side effects, follow diabetic diet and check hemoglobin A1c. 12. Carpal tunnel left side: Advised to avoid repetitive movements over the left arm, use wrist brace follow-up with orthopedics as recommended before or as needed. 13. Give patient flu shot and COVID-vaccine today. 14. Acute prostatitis/history of recurrent prostatitis: Use doxycycline as directed discussed with the patient with precautions with taking doxycycline send urine for microscopy and culture if indicated and follow-up with urology for further evaluation and management. 15. Hyperlipidemia: Advised patient follow low-fat diet we will check lipid panel and CMP. 16. Follow up in 3-4 days if no improvement 3 months or or as needed, if condition gets worse go to ER or come back to clinic. [email or web address] Not available 05/06/2024 21:16:39 Reason for Referral None Reported. Results Created Date Observation Date Name Description Value Unit Range Abnormal Flag Note LastModifiedBy Organization Detail LastModifiedTime 02/02/20 24 02/02/2024 GLYCO HEMOG LOBIN A1C glyco HGB A1C 6.4 % 0.0-5. 6 high Not Available [facility] [address] [place], [address], 02/02/2024 13:26:20 02/02/20 24 02/02/2024 GLYCO HEMOG LOBIN A1C estimated avg. glucose 137 mg/dL _(rox c) normal A1c value s betwe en 5.7% to 6.4% indic ate predi abete s. Resul ts 6.5% or great er is diagn ostic of diabe lara. Ameri can Diabe lara Assoc iatio n (diab etes. org) Not Available [facility] [address] [place] [address], [address], 02/02/2024 13:26:20 02/02/20 24 02/02/2024 MICRO ALBUM IN/CR EAT RATIO microalbumin , random 12 mg/L 0-19 normal Not Available [facility] [address] [place] [address], [address], 02/02/2024 14:05:14 02/02/20 24 02/02/2024 MICRO ALBUM IN/CR EAT RATIO creatinine,u r,random 143 mg/dL normal NO ANASTASIYA L RANGE ESTAB LISHE D FOR RANDO M URINE . Not Available [facility] [address] [place] [address], [address], 02/02/2024 14:05:14 02/02/20 24 02/02/2024 MICRO ALBUM IN/CR EAT RATIO MA/creatinin e ratio see below mcg/m g_cre at 0-29 normal Unabl e to calcu late micro album in/cr eatin ine ratio . Not Available [facility] [address] [place] [address], [address], 02/02/2024 14:05:14 02/02/20 24 02/02/2024 GENER AL HEALT H PANEL glucose 138 mg/dL 74-100 high Not Available [facility] [address] [place] [address], [address], 02/02/2024 17:17:02/02/20 24 02/02/2024 GENER AL HEALT H PANEL blood urea nitrogen 9 mg/dL 6-20 normal Not Available [facility] [address] [place] [address], [address], 02/02/2024 17:17:02/02/20 24 02/02/2024 GENER AL HEALT H PANEL creatinine 0.84 mg/dL 0.70-1 .28 normal Not Available [facility] [address] [place] [address], [address], 02/02/2024 17:17:02/02/20 24 02/02/2024 GENER AL HEALT H PANEL BUN/creatini ne ratio 11 (calc ) 10-20 normal Not Available [facility] [address] [place] [address], [address], 02/02/2024 17:17:02/02/20 24 02/02/2024 GENER AL HEALT H PANEL sodium 138 mmol/ L 136-14 5 normal Not Available [facility] [address] [place] [address], [address], 02/02/2024 17:17:02/02/20 24 02/02/2024 GENER AL HEALT H PANEL potassium 4.8 mmol/ L 3.4-5. 0 normal Not Available [facility] [address] [place] [address], [address], 02/02/2024 17:17:02/02/20 24 02/02/2024 GENER AL HEALT H PANEL chloride 98 mmol/ L 98-107 normal Not Available [facility] [address] [place] [address], [address], 02/02/2024 17:17:02/02/20 24 02/02/2024 GENER AL HEALT H PANEL carbon dioxide 31 mmol/ L 22-31 normal Not Available [facility] [address] [place] [address], [address], 02/02/2024 17:17:02/02/20 24 02/02/2024 GENER AL HEALT H PANEL anion gap 9 (calc ) 7-25 normal Not Available [facility] [address] [place] [address], [address], 02/02/2024 17:17:02/02/20 24 02/02/2024 GENER AL HEALT H PANEL calcium 9.2 mg/dL 8.6-10 .2 normal Not Available [facility] [address] [place] [address], [address], 02/02/2024 17:17:02/02/20 24 02/02/2024 GENER AL HEALT H PANEL total protein 7.5 g/dL 6.4-8. 3 normal Not Available [facility] [address] [place] [address], [address], 02/02/2024 17:17:02/02/20 24 02/02/2024 GENER AL HEALT H PANEL albumin 4.4 g/dL 3.5-5. 2 normal Not Available [facility] [address] [place] [address], [address], 02/02/2024 17:17:02/02/20 24 02/02/2024 GENER AL HEALT H PANEL globulin 3.1 1.5-4. 5 normal Not Available [facility] [address] [place] [address], [address], 02/02/2024 17:17:02/02/20 24 02/02/2024 GENER AL HEALT H PANEL albumin/glob ulin ratio 1.4 (calc ) 1.1-2. 5 normal Not Available [facility] [address] [place] [address], [address], 02/02/2024 17:17:02/02/20 24 02/02/2024 GENER AL HEALT H PANEL bilirubin, total 0.3 mg/dL 0.1-1. 2 normal Not Available [facility] [address] [place], [address], 02/02/2024 17:17:02/02/20 24 02/02/2024 GENER AL HEALT H PANEL alkaline phosphatase 57 U/L 40-129 normal Not Available [facility] [address] [place], [address], 02/02/2024 17:17:02/02/20 24 02/02/2024 GENER AL HEALT H PANEL AST 39 U/L 0-40 normal Not Available [facility] [address] [place], [address], 02/02/2024 17:17:02/02/20 24 02/02/2024 GENER AL HEALT H PANEL ALT 60 U/L 0-41 high Not Available [facility] [address] [place], [address], 02/02/2024 17:17:02/02/20 24 02/02/2024 GENER AL HEALT H PANEL GFR 113 >= 60 normal NOT E New calcu latio n for GFR (CKD- EPI 2020) is formu lated witho ut race adjus tment facto rs at the recom menda tion of the Zeke Couch y Elvin atcandis and Ameri alexandr [facility] . This calcu latio n has not been valid ated in pregn ant women . For pedia tric patie nts refer to https ://tomas w.zane restrepo.o rg/pr preston chirinosal s/KDO QI/gf r_cal culat orPed Not Available [facility] [address] [place], [address], 02/02/2024 17:17:02/02/20 24 02/02/2024 GENER AL HEALT H PANEL white blood cells 6.2 10*3/ uL 3.8-10 .8 normal Not Available [facility] [address] [place], [address], 02/02/2024 17:17:06 02/02/20 24 02/02/2024 GENER AL HEALT H PANEL red blood cells 5.18 10*6/ uL 4.20-5 .80 normal Not Available [facility] [address] [place] [address], [address], 02/02/2024 17:17:06 02/02/20 24 02/02/2024 GENER AL HEALT H PANEL hemoglobin 15.8 g/dL 14.0-1 8.0 normal Not Available [facility] [address] [place] [address], [address], 02/02/2024 17:17:06 02/02/20 24 02/02/2024 GENER AL HEALT H PANEL hematocrit 47.2 % 40.0-5 2.0 normal Not Available [facility] [address] [place] [address], [address], 02/02/2024 17:17:02/02/20 24 02/02/2024 GENER AL HEALT H PANEL MCV 91 fL 80-100 normal Not Available [facility] [address] [place] [address], [address], 02/02/2024 17:17:06 02/02/20 24 02/02/2024 GENER AL HEALT H PANEL MCH 31 pg 26-35 normal Not Available [facility] [address] [place] [address], [address], 02/02/2024 17:17:02/02/20 24 02/02/2024 GENER AL HEALT H PANEL MCHC 34 g/dL 32-36 normal Not Available [facility] [address] [place] [address], [address], 02/02/2024 17:17:06 02/02/20 24 02/02/2024 GENER AL HEALT H PANEL RDW 13.8 % 11.0-1 5.0 normal Not Available [facility] [address] [place] [address], [address], 02/02/2024 17:17:02/02/20 24 02/02/2024 GENER AL HEALT H PANEL MPV 8.8 fL 6.2-10 .5 normal Not Available [facility] [address] [place] [address], [address], 02/02/2024 17:17:06 02/02/20 24 02/02/2024 GENER AL HEALT H PANEL platelet count 219 10*3/ uL 150-40 0 normal Not Available [facility] [address] [place] [address], [address], 02/02/2024 17:17:06 02/02/20 24 02/02/2024 GENER AL HEALT H PANEL neutrophil,a bsolute 3.7 10*3/ uL 1.6-8. 4 normal Not Available [facility] [address] [place] [address], [address], 02/02/2024 17:17:06 02/02/20 24 02/02/2024 GENER AL HEALT H PANEL lymphocyte,a bsolute 1.7 10*3/ uL 0.4-5. 1 normal Not Available [facility] [address] [place] [address], [address], 02/02/2024 17:17:02/02/20 24 02/02/2024 GENER AL HEALT H PANEL monocyte,abs olute 0.4 10*3/ uL 0.0-1. 2 normal Not Available [facility] [address] [place] [address], [address], 02/02/2024 17:17:02/02/20 24 02/02/2024 GENER AL HEALT H PANEL eosinophil,a bsolute 0.3 10*3/ uL 0.0-0. 8 normal Not Available [facility] [address] [place] [address], [address], 02/02/2024 17:17:06 02/02/20 24 02/02/2024 GENER AL HEALT H PANEL basophil,abs olute 0.0 10*3/ uL 0.0-0. 3 normal Not Available [facility] [address] [place] [address], [address], 02/02/2024 17:17:02/02/20 24 02/02/2024 GENER AL HEALT H PANEL % neutrophils 60.2 % 42.0-7 8.0 normal Not Available [facility] [address] [place] [address], [address], 02/02/2024 17:17:02/02/20 24 02/02/2024 GENER AL HEALT H PANEL % lymphocytes 28.2 % 11.0-4 7.0 normal Not Available [facility] [address] [place] [address], [address], 02/02/2024 17:17:02/02/20 24 02/02/2024 GENER AL HEALT H PANEL % monocytes 6.5 % 0.0-11 .0 normal Not Available [facility] [address] [place] [address], [address], 02/02/2024 17:17:02/02/20 24 02/02/2024 GENER AL HEALT H PANEL % eosinophils 4.4 % 0.0-7. 0 normal Not Available [facility] [address] [place] [address], [address], 02/02/2024 17:17:02/02/20 24 02/02/2024 GENER AL HEALT H PANEL % basophils 0.7 % 0.0-3. 0 normal Not Available [facility] [address] [place] [address], [address], 02/02/2024 17:17:02/02/20 24 02/02/2024 GENER AL HEALT H PANEL nucleated red cells 0.0 % 0.0-0. 9 normal Not Available [facility] [address] [place] [address], [address], 02/02/2024 17:17:06 02/02/20 24 02/02/2024 GENER AL HEALT H PANEL nucleated RBCs, absolute 0.00 10*3/ uL not estab. normal Not Available [facility] [address] [place] [address], [address], 02/02/2024 17:17:06 02/02/20 24 02/02/2024 GENER AL HEALT H PANEL TSH 0.783 u[IU] /mL 0.270- 4.200 normal Not Available [facility] [address] [place] [address], [address], 02/02/2024 17:17:06 02/02/20 24 02/02/2024 B12/F OLIC ACID PANEL folic acid 11.7 NG/mL 4.6-34 .8 normal Not Available [facility] [address] [place] [address], [address], 02/02/2024 14:38:34 02/02/20 24 02/02/2024 B12/F OLIC ACID PANEL vitamin B12 312 pg/mL 232-12 45 normal Not Available [facility] [address] [place] [address], [address], 02/02/2024 14:38:34 02/02/20 24 02/02/2024 DINO TIN ferritin 206 NG/mL 30-400 normal Not Available [facility] [address] [place] [address], [address], 02/02/2024 17:17:01 02/02/20 24 02/02/2024 LIPID PROFI LE HDL cholesterol 31 mg/dL 40-242 low Not Available [facility] [address] [place] [address], [address], 02/02/2024 17:17:04 02/02/20 24 02/02/2024 LIPID PROFI LE triglyceride s 403 mg/dL 0-149 high TRIGL YCERI DE RANGE S ANASTASIYA L: < 150 BORDE RLINE HIGH: 150 - 199 HIGH: 200 - 499 VERY HIGH: > OR = 500 Not Available [facility] [address] [place] [address], [address], 02/02/2024 17:17:04 02/02/20 24 02/02/2024 LIPID PROFI LE cholesterol 174 mg/dL 0-199 normal SIMA STERO L (TOTA L) RANGE S REEMA ABLE: < 200 BORDE RLINE : 200 - 239 HIGHE R RISK: > 239 Not Available [facility] [address] [place] [address], [address], 02/02/2024 17:17:04 02/02/20 24 02/02/2024 LIPID PROFI LE LDL cholesterol - mg/dL _(rox c) 0-99 abnormal Trigl yceri de resul t is > 400. LDL canno t be calcu lated . LDL SIMA STERO L RANGE S OPTIM AL: < 100 NEAR/ ABOVE OPTIM AL: 100 - 129 BORDE RLINE HIGH: 130 - 159 HIGH: 160 - 189 VERY HIGH: > OR = 190 Not Available [facility] [address] [place] [address], [address], 02/02/2024 17:17:04 05/04/20 24 05/04/2024 GLYCO HEMOG LOBIN A1C glyco HGB A1C 7.5 % 0.0-5. 6 high Not Available [facility] [address] [place] [address], [address], 05/04/2024 13:17:01 05/04/20 24 05/04/2024 GLYCO HEMOG LOBIN A1C estimated avg. glucose 169 mg/dL _(rox c) normal A1c value s betwe en 5.7% to 6.4% indic ate predi abete s. Resul ts 6.5% or great er is diagn ostic of diabe lara. Ameri can Diabe lara Assoc iatio n (diab etes. org) Not Available [facility] [address] [place] [address], [address], 05/04/2024 13:17:01 05/04/20 24 05/04/2024 COMP. METAB OLIC PANEL glucose 209 mg/dL 74-100 high Not Available [facility] [address] [place] [address], [address], 05/04/2024 15:10:28 05/04/20 24 05/04/2024 COMP. METAB OLIC PANEL blood urea nitrogen 15 mg/dL 6-20 normal Not Available [facility] [address] [place] [address], [address], 05/04/2024 15:10:28 05/04/20 24 05/04/2024 COMP. METAB OLIC PANEL creatinine 0.79 mg/dL 0.70-1 .28 normal Not Available [facility] [address] [place] [address], [address], 05/04/2024 15:10:28 05/04/20 24 05/04/2024 COMP. METAB OLIC PANEL BUN/creatini ne ratio 19 (calc ) 10-20 normal Not Available [facility] [address] [place] [address], [address], 05/04/2024 15:10:28 05/04/20 24 05/04/2024 COMP. METAB OLIC PANEL sodium 138 mmol/ L 136-14 5 normal Not Available [facility] [address] [place] [address], [address], 05/04/2024 15:10:28 05/04/20 24 05/04/2024 COMP. METAB OLIC PANEL potassium 4.5 mmol/ L 3.4-5. 0 normal Not Available [facility] [address] [place] [address], [address], 05/04/2024 15:10:28 05/04/20 24 05/04/2024 COMP. METAB OLIC PANEL chloride 100 mmol/ L 98-107 normal Not Available [facility] [address] [place] [address], [address], 05/04/2024 15:10:28 05/04/20 24 05/04/2024 COMP. METAB OLIC PANEL carbon dioxide 29 mmol/ L 22-31 normal Not Available [facility] [address] [place] [address], [address], 05/04/2024 15:10:28 05/04/20 24 05/04/2024 COMP. METAB OLIC PANEL anion gap 9 (calc ) 7-25 normal Not Available [facility] [address] [place] [address], [address], 05/04/2024 15:10:28 05/04/20 24 05/04/2024 COMP. METAB OLIC PANEL calcium 9.1 mg/dL 8.6-10 .2 normal Not Available [facility] [address] [place] [address], [address], 05/04/2024 15:10:28 05/04/20 24 05/04/2024 COMP. METAB OLIC PANEL total protein 6.6 g/dL 6.4-8. 3 normal Not Available [facility] [address] [place] [address], [address], 05/04/2024 15:10:28 05/04/20 24 05/04/2024 COMP. METAB OLIC PANEL albumin 4.0 g/dL 3.5-5. 2 normal Not Available [facility] [address] [place] [address], [address], 05/04/2024 15:10:28 05/04/20 24 05/04/2024 COMP. METAB OLIC PANEL globulin 2.6 1.5-4. 5 normal Not Available [facility] [address] [place] [address], [address], 05/04/2024 15:10:28 05/04/20 24 05/04/2024 COMP. METAB OLIC PANEL albumin/glob ulin ratio 1.5 (calc ) 1.1-2. 5 normal Not Available [facility] [address] [place] [address], [address], 05/04/2024 15:10:28 05/04/20 24 05/04/2024 COMP. METAB OLIC PANEL bilirubin, total 0.3 mg/dL 0.1-1. 2 normal Not Available [facility] [address] [place] [address], [address], 05/04/2024 15:10:28 05/04/20 24 05/04/2024 COMP. METAB OLIC PANEL alkaline phosphatase 57 U/L 40-129 normal Not Available [facility] [address] [place] [address], [address], 05/04/2024 15:10:28 05/04/20 24 05/04/2024 COMP. METAB OLIC PANEL AST 28 U/L 0-40 normal Not Available [facility] [address] [place] [address], [address], 05/04/2024 15:10:28 05/04/20 24 05/04/2024 COMP. METAB OLIC PANEL ALT 43 U/L 0-41 high Not Available [facility] [address] [place] [address], [address], 05/04/2024 15:10:28 05/04/20 24 05/04/2024 COMP. METAB OLIC PANEL GFR 115 >= 60 normal NOT E New calcu latio n for GFR (CKD- EPI 2020) is formu lated witho ut race adjus tment facto rs at the recom menda tion of the Zeke Couch y Elvin atcandis and Baudilio Gan ty of Nephr ology . This calcu latio n has not been valid ated in pregn ant women . For pedia tric patie nts refer to https ://tomas restrepo.o rg/pr ofess ional s/KDO QI/gf r_cal culat orPed Not Available [facility] [address] [place] [address], [address], 05/04/2024 15:10:28 05/04/20 24 05/04/2024 LIPID PROFI LE HDL cholesterol 27 mg/dL 40-242 low Not Available [facility] [address] [place] [address], [address], 05/04/2024 15:10:30 05/04/20 24 05/04/2024 LIPID PROFI LE triglyceride s 570 mg/dL 0-149 high TRIGL YCERI DE RANGE S ANASTASIYA L: < 150 BORDE RLINE HIGH: 150 - 199 HIGH: 200 - 499 VERY HIGH: > OR = 500 Not Available [facility] [address] [place] [address], [address], 05/04/2024 15:10:30 05/04/20 24 05/04/2024 LIPID PROFI LE cholesterol 190 mg/dL 0-199 normal SIMA STERO L (TOTA L) RANGE S REEMA ABLE: < 200 BORDE RLINE : 200 - 239 HIGHE R RISK: > 239 Not Available [facility] [address] [place] [address], [address], 05/04/2024 15:10:30 05/04/20 24 05/04/2024 LIPID PROFI LE LDL cholesterol - mg/dL _(rox c) 0-99 abnormal Trigl yceri de resul t is > 400. LDL canno t be calcu lated . LDL SIMA STERO L RANGE S OPTIM AL: < 100 NEAR/ ABOVE OPTIM AL: 100 - 129 BORDE RLINE HIGH: 130 - 159 HIGH: 160 - 189 VERY HIGH: > OR = 190 Not Available [facility] [address] [place], [address], 05/04/2024 15:10:30 05/04/20 24 05/04/2024 UA MICRO SCOPI C, CULTU RE IF INDIC ATED mucus, urine 3+ /lpf not establ ished normal Not Available [facility] [address] [place] [address], [address], 05/04/2024 18:03:18 05/04/20 24 05/04/2024 UA MICRO SCOPI C, CULTU RE IF INDIC ATED WBC, urine 0-5 0-5/hp f normal Not Available [facility] [address] [place], [address], 05/04/2024 18:03:18 05/04/20 24 05/04/2024 UA MICRO SCOPI C, CULTU RE IF INDIC ATED bacteria Trace /hpf none seen abnormal Occ. sperm atozo a noted . Not Available [facility] [address] [place] [address], [address], 05/04/2024 18:03:18 05/04/20 24 05/04/2024 UA MICRO SCOPI C, CULTU RE IF INDIC ATED reflex culture see below normal UA resul ts do not meet cultu re crite ramesh. Not Available [facility] [place], [address], 05/04/2024 18:03:18 05/04/20 24 05/04/2024 urina lysis , dipst ick Unknown Analyte Straw Not Available [address], [address], 05/04/2024 09:24:52 05/04/20 24 05/04/2024 urina lysis , dipst ick Unknown Analyte Clear Not Available [address], [address], 05/04/2024 09:24:52 05/04/20 24 05/04/2024 urina lysis , dipst ick Unknown Analyte 1.025 Not Available [address], [address], 05/04/2024 09:24:52 05/04/20 24 05/04/2024 urina lysis , dipst ick Unknown Analyte 5.0 Not Available [facility] [address] [place], [address], 05/04/2024 09:24:52 05/04/2005/04/2024 urina lysis , dipst ick Unknown Analyte Negati ve Not Available [address], [address], 05/04/2024 09:24:52 05/04/2005/04/2024 urina lysis , dipst ick Unknown Analyte Negati ve Not Available [address], [address], 05/04/2024 09:24:52 05/04/2005/04/2024 urina lysis , dipst ick Unknown Analyte Negati ve Not Available [address], [address], 05/04/2024 09:24:52 05/04/2005/04/2024 urina lysis , dipst ick Unknown Analyte >1000 mg/dl Not Available [address], [address], 05/04/2024 09:24:52 05/04/2005/04/2024 urina lysis , dipst ick Unknown Analyte Negati ve Not Available [address], [address], 05/04/2024 09:24:52 05/04/2005/04/2024 urina lysis , dipst ick Unknown Analyte 1 mg/dl Not Available [address], [address], 05/04/2024 09:24:52 09/03/20 24 05/04/2024 urina lysis , dipst ick Unknown Analyte 1 mg/dl (+) Not Available [address], [address], 05/04/2024 09:24:52 05/04/20 24 05/04/2024 urina lysis , dipst ick Unknown Analyte 50 Joshua/ul Not Available [address], [address], 05/04/2024 09:24:52 05/04/2005/04/2024 urina lysis , dipst ick Unknown Analyte Clean Catch Not Available [address], [address], 05/04/2024 09:24:52 05/04/20 24 05/04/2024 urina lysis , dipst ick Unknown Analyte Automa brennon Not Available [address], [address], 05/04/2024 09:24:52 06/10/20 24 06/10/2024 urina lysis panel , auto Unknown Analyte Clean Catch Not Available [facility] [address], [place], [address], 06/10/2024 14:15:00 06/10/20 24 06/10/2024 urina lysis panel , auto Unknown Analyte Yellow Not Available [facility] [address], [place], [address], 06/10/2024 14:15:00 06/10/20 24 06/10/2024 urina lysis panel , auto Unknown Analyte Clear Not Available [facility] [address], [place], [address], 06/10/2024 14:15:00 06/10/2006/10/2024 urina lysis panel , auto Unknown Analyte 1.010 Not Available [facility] [address], [place], [address], 06/10/2024 14:15:00 06/10/2006/10/2024 urina lysis panel , auto Unknown Analyte 1.003- 1.035 Not Available [facility] [address], [place], [address], 06/10/2024 14:15:00 06/10/2006/10/2024 urina lysis panel , auto Unknown Analyte 7.0 Not Available [facility] [address], [place], [address], 06/10/2024 14:15:00 06/10/2006/10/2024 urina lysis panel , auto Unknown Analyte 5.0-8. 0 Not Available [facility] [address], [place], [address], 06/10/2024 14:15:00 06/10/2006/10/2024 urina lysis panel , auto Unknown Analyte Negati ve Not Available [facility] [address], [place], [address], 06/10/2024 14:15:00 06/10/2006/10/2024 urina lysis panel , auto Unknown Analyte Negati ve Not Available [facility] [address], [place], [address], 06/10/2024 14:15:00 06/10/2006/10/2024 urina lysis panel , auto Unknown Analyte Negati ve Not Available [facility] [address], [place], [address], 06/10/2024 14:15:00 06/10/2006/10/2024 urina lysis panel , auto Unknown Analyte Negati ve Not Available [facility] [address], [place], [address], 06/10/2024 14:15:00 06/10/2006/10/2024 urina lysis panel , auto Unknown Analyte Negati ve Not Available [facility] [address], [place], [address], 06/10/2024 14:15:00 06/10/2006/10/2024 urina lysis panel , auto Unknown Analyte Negati ve Not Available [facility] [address], [place], [address], 06/10/2024 14:15:00 06/10/2006/10/2024 urina lysis panel , auto Unknown Analyte Normal Not Available [facility] [address], [place], [address], 06/10/2024 14:15:00 06/10/2006/10/2024 urina lysis panel , auto Unknown Analyte Normal Not Available [facility] [address], [place], [address], 06/10/2024 14:15:00 06/10/2006/10/2024 urina lysis panel , auto Unknown Analyte Negati ve Not Available [facility] [address], [place], [address], 06/10/2024 14:15:00 06/10/2006/10/2024 urina lysis panel , auto Unknown Analyte Negati ve Not Available [facility] [address], [place], [address], 06/10/2024 14:15:00 06/10/2006/10/2024 urina lysis panel , auto Unknown Analyte 1 mg/dl Not Available [facility] [address], [place], [address], 06/10/2024 14:15:00 06/10/2006/10/2024 urina lysis panel , auto Unknown Analyte Normal 1 mg/dl Not Available [facility] [address], [place], [address], 06/10/2024 14:15:00 06/10/2006/10/2024 urina lysis panel , auto Unknown Analyte Negati ve Not Available [facility] [address], [place], [address], 06/10/2024 14:15:00 06/10/2006/10/2024 urina lysis panel , auto Unknown Analyte Negati ve Not Available [facility] [address], [place], [address], 06/10/2024 14:15:00 06/10/20 24 06/10/2024 urina lysis panel , auto Unknown Analyte Negati ve Not Available [facility] [address], [place], [address], 06/10/2024 14:15:00 06/10/20 24 06/10/2024 urina lysis panel , auto Unknown Analyte Negati ve Not Available [facility] [address] [facility] [address], [place], [address], 06/10/2024 14:15:00 02/16/20 24 02/16/2024 nerve condu ction study /EMG, upper extre mity (PROC ) No observ ation record ed. Formerly [facility], [facility] Professional Charges [address], [place], [address], 02/17/2024 13:47:16 03/18/20 24 03/18/2024 oxime try monit oring overn ight No observ ation record ed. APURVA Not Available 2023 15:54:39 06/10/20 24 06/10/2024 XR, abdom en, 1 view No observ ation record ed. [facility]) [address], [place], [address], 06/11/2024 15:37:14 Result Notes None recorded. Problems Name Problem SNOMED Code Status Onset Date Resolution Date Notes Provider Name and Address Organization Details Recorded Time Dysuria 06123802 Active 2015 From Automated Load;Prov ider: Clive Nayak Jr atus: Active Not Available [facility] 7 07:22:51 Lower urinary tract symptoms due to benign prostatic hypertrop 81125573839 101 Active 2015 Provider: Clive Nayak Jr atus: Active Not Available [facility] 7 08:24:31 Acute prostatit is 70452491 Active 2015 From Automated Load;Prov ider: Clive Nayak Jr atus: Active Not Available [facility] 7 08:24:31 Syncope 370460111 Active 2016 DIXON FREITAS PA-C [address] [place] [address], [address] , [facility] 7 13:03:17 Chronic back pain 243889362 Active 2020 VAISHALI PICKETT MD [address] [place] [address], [place], [address] , [facility] 08:51:46 Restless legs 95122036 Active 2020 VAISHALI PICKETT MD [address] [place] [address] [place], [address] , [facility] 08:51:47 Mixed anxiety and depressiv e disorder 372804932 Active 2020 VAISHALI PICKETT MD [address] [place] [address] [place], [address] , [facility] 08:51:49 Allergic rhinitis 52798727 Active 2020 VAISHALI PICKETT MD [address] [place] [address] [place], [address] , [facility] 08:51:51 Insomnia 942420610 Active 2020 VAISHALI PICKETT MD [address] [facility] [place], [address] , [facility] 08:51:53 Obstructi ve sleep apnea syndrome 37554530 Active 2020 VAISHALI PICKETT MD [address] [place], [address] , [facility] 08:51:55 Vasovagal syncope 488196458 Active 2022 + [place] [address] [place] [address], [address] , [facility] 3 06:51:04 Supravent ricular tachycard ia 2582819 Active 2022 SYDNEE KEITH MD [address] [place] [address], [address] , [facility] 3 06:51:09 Prostatit is 1283448 Active 2023 JERAD NAYAK JR, MD [address] [place] [address], [address] , [facility] 4 08:11:03 History of calculus of kidney 225756679 Active 2023 JERAD NAYAK JR, MD [address] [place] [address], [address] , [facility] 4 08:11:04 Problem Notes Documentation Provider Name and Address Organization Details Recorded Time Orthopedic Surgeon Consult N ote : [facility] [address] [facility] [id number], Jeremy E (id #[id number], : 1985) [place] [address] [place] [address] Encounter Summary - Progress Note Date Printed: 03/15/2024 Documents sent via fax will include the followingmessage: This fax may contain sensitive and confidential personal health information that is being sent for the sole use of the intended recipient. Unintended recipients are directed to securely destroy any materials received. You are hereby notified that the unauthorized disclosure or other unlawful use of this fax or any personal health information is prohibited. To the extent patient information contained in this fax is subject to 42 CFR Part 2, this regulation prohibits unauthorized disclosure of these records. If you received this fax in error, please visit [email or web address] to notify the sender and confirm that the information will be destroyed. If you do not have internet access, please call to notify the sender and confirm that the information will be destroyed. Thank you for your attention and cooperation. [ID:[id number]] Patient Po Shanks (38yo, M) #[id number] 1985 Patient Demographics: Address [address] [place] [address] Work Phone Encounter Notes: Encounter Reason/DateNone recorded 03/15/2024 - 08:15AM - [facility] History of Present IllnessConsult requested by: Dr. Vaishali Pickett Primary Care Physician: Dr. Vaishali Pickett Hand dominance: RightLocation: Left Wrist Pain level: 5-6 /10 Date of injury:Duration: 1 year Recent Surgery: NoProcedure:Date of surgery:Surgeon(If Known): In office procedure? Yes EMG 02/16/24 Previous upper extremity surgery? NoProcedure:Approximate date of surgery:Surgeon (if known):Have you or an immediate family member ever seen our hand surgeons before? No Currently employed?: DisabledEmployer:Occupation: Are they currently working? No Is this injury associated with a Workers Compensation claim? No Patient arrived in: ____ [employer] Strength: right: left: New: Mr. Shanks is here for evaluation of n/t in lt hand with pain on going for 1 year. EMG in chart. Review of SystemsNone recorded [id number] 08:20 Ht: 6 ft 3 in Wt: 320 lbs BMI: 40 BP: Not Performed - Not indicated Pain Scale: 6 Results/InterpretationsNone recorded Physical Examtender thumb cmc joint left min cmc grind+ mnct (R/S) EMG: CTS Procedure DocumentationInjection Carpal Tunnel:After discussion of the risks and benefits, the patient consented to a corticosteroid injection in the left carpal tunnel(s). The skin was sterilized with alcohol. Topical anesthesia was achieved with ethyl chloride. 1 cc of Betamethasone [facility] 6399[address]85[address]-25 with marcainewas injected into the involved carpal tunnel(s). The injection was completed without complication and a bandage was applied. The patient tolerated the procedure well and will call immediately with any signs of infection or allergic reaction. Medication NDC#: Medication Lot#: Medication Exp: Assessment and Plan1. Carpal tunnel syndrome of left wrist-diagnostic injection (symptoms atypical R/S as well as TIL) f/u 6 bqzkoZ97.02: Carpal tunnel syndrome, left upper limb 2. Osteoarthrosis of the carpometacarpal joint of the thumb-hbtss, f/u 6 weeks with vbdqdY50.9: Osteoarthritis of first carpometacarpal joint, unspecified Arthritis Thumb-LC - Handout: Arthritis Thumb-LC Return to Office KELI VILLEGAS PA-C for VIRTUAL VISIT-PULM at PULMONARY on 04/28/2024 at 11:00 AM VAISHALI PICKETT MD for RECHECK at [facility] on 05/04/2024 at 09:00 AM to see [facility] for DEVICE CHECK at [facility] on or around 06/30/2024 Patient Medical History: Allergies List Reviewed Allergies OXYCONTIN: - Comment: Created By: Daniel Pitts;Created Date: 07/22/2011 11:36:08 AM; PENICILLINS: - Comment: Created By: Daniel Pitts;Created Date: 07/22/2011 11:36:01 AM; Medications Reviewed Medications NameDate Source albuterol sulfate HFA 90 mcg/actuation aerosol inhalerINHALE 2 PUFFS 4 TIMES A DAY NEEDED.01/15/22 prescribed VAISHALI PICKETT MD carvediloL 25 mg tabletTake 1 tablet by mouth twice a day02/02/24 prescribed VAISHALI PICKETT MD chlorthalidone 25 mg tabletTAKE 1 TABLET BY MOUTH EVERY DAY02/16/24 renewed SYDNEE KEITH MD Colace 100 mg capsuleTake 1 capsule(s) every day by oral route.07/28/23 prescribed JENNA ROSALES MD cyclobenzaprine 10 mg tabletTAKE 1 TABLET BY MOUTH THREE TIMES A DAY EKEMDJ34/10/24 renewed VAISHALI PICKETT MD diclofenac sodium 75 mg tablet,delayed releaseTAKE 1 TABLET BY MOUTH TWICE A DAY WSQVCM89/01/24 renewed VAISHALI PICKETT MD famotidine 40 mg tabletTAKE 1 TABLET BY MOUTH EVERY EVENING FHMBNY34/03/24 prescribed VAISHALI PICKETT MD fluticasone propionate 50 mcg/actuation nasal spray,suspensionSpray 1 spray(s) every day by intranasal route.02/02/24 prescribed VAISHALI PICKETT MD HYDROcodone 5 mg-acetaminophen 325 mg tabletTake 1 tablet(s) every 6 hours by oral route.07/28/23 prescribed JENNA ROSALES MD lisinopriL 10 mg tabletTake 1 tablet(s) every day by oral route.02/02/24 prescribed VAISHALI PICKETT MD metFORMIN ER 500 mg tablet,extended release 24 hrTake 4 tablet(s) every day by oral route at bedtime for 30 days.02/02/24 prescribed VAISHALI PICKETT MD NexIUM 40 mg capsule,delayed releaseTake 1 capsule(s) as needed by oral route in the evening.02/02/24 prescribed VAISHALI PICKETT MD ondansetron 4 mg disintegrating tabletPlace 1 tablet(s) every 8 hours by translingual route as needed for 5 days.02/02/24 prescribed VAISHALI PICKETT MD pramipexole 1 mg tabletTAKE 1.5 TABLET BY MOUTH EVERY EVENING WTUUWR69/17/24 changed VAISHALI PICKETT MD rOPINIRole 0.25 mg tabletTake 1 tablet daily for 2 days then 2 tablets daily.03/02/24 prescribed KELI VILLEGAS PA-C sertraline 100 mg tabletTAKE 1 1/2 TABLETS BY MOUTH EVERY DAY02/02/24 prescribed VAISHALI PICKETT MD traZODone 100 mg tabletTAKE 2 TABLETS BY MOUTH NEEDED AT YAWMMIM51/03/24 prescribed VAISHALI PICKETT MD Vascepa 1 gram capsuleTAKE 2 CAPSULES BY MOUTH TWICE A DAY02/16/24 renewed SYDNEE KEITH MD Wellbutrin XL 300 mg 24 hr tablet, extended releaseTake 1 tablet(s) every day by oral route.02/02/24 prescribed VAISHALI PICKETT MD Family HistoryReviewed Family History Unspecified Relation - Diabetes mellitus - Family history of malignant neoplasm Past Medical HistoryReviewed Past Medical History Arthritis:Y Diabetes:Y Hypertension:Y Kidney Stones:Y Notes: RSD Vaccine HistoryReviewed Vaccines Vaccine Type Date Amt. Route Site NDC Lot # Mfr. Exp. 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 03/19/21 Moderna COVID-19 Vaccine EUA Fact Sheet 08/01/2020 11/15/20 Jennifer Berg COVID-19, mRNA, LNP-S, PF, 100 mcg/0.5 mL dose (Moderna) 10/18/20 0.5 mL Intramuscular Deltoid, Left [id number] [employer] 03/06/21 Moderna COVID-19 Vaccine EUA Fact Sheet 08/01/2020 10/17/20 Jennifer Berg Diphtheria, Tetanus Td (adult), adsorbed 05/22/98 Diphtheria, Tetanus, Pertussis Tdap 12/26/20 0.5 mL Intramuscular Deltoid, Left [id number] [employer] 12/05/22 Tdap 12/01/2019 12/26/20 Melchor Erickson, Termed Hepatitis A Hep A, adult 02/02/24 1 mL Intramuscular Deltoid, Right [id number] [employer] 10/03/25 Hepatitis A 06/15/2021 02/02/24 Benita Mosqueda Hep A, adult 08/01/19 Hepatitis B Hep B, adolescent or pediatric 12/07/99 Hep B, adolescent/high risk 07/04/98 Hep B, adolescent/high risk infant 05/22/98 Influenza influenza, injectable, quadrivalent 04/11/21 influenza, injectable, quadrivalent 06/01/20 influenza, injectable, quadrivalent, preservative free 04/24/17 0.5 mL Intramuscular [id number] [employer] 01/03/18 Electronically Signed by: KATE DELUNA MD VAISHALI PICKETT MD [address] [place], [address], [facility] 03/30/2024 18:04:19 Urology Note : [facility] [address], [facility] [id number], Jeremy E (id #[id number], : 1985) [facility] [address] [place] [address] Date: 4RE: Po Shanks, : 1985, PT ID #[id number] Pickett MD, I would like to thank you for referring Po Shanks to our practice for consultation and evaluation. I have enclosed a copy of the office evaluation for your records. Sincerely, Electronically Signed by: JERAD NAYAK JR, MDEncsierra nevada memorial hospitaler Reason/DateTransition of Care Encounter 06/10/2024 - 09:00AM - [facility] History of Present IllnessPatient is in today with symptoms of prostatitis. He does report an episode of hematuria x 1. He also is having some discomfort in the scrotum and low back especially on the left side. He is using tamsulosin daily. He has not had any prostatitis episodes recently. He denies recent stone episode.Review of Systems Patient reportsedemabut reports no chest pain, no arm pain on exertion, no shortness of breath when walking, no shortness of breath when lying down, no palpitations, no known heart murmur, and no edema. He reportsnausea, vomiting, and frequent diarrheabut reports normal appetite, no abdominal pain, not vomiting blood, no constipation, no bright red blood per rectum, no dyspepsia, and no GERD. He reportsabnormal urinary flowing and dysuriabut reports no incontinence, no difficulty urinating, no hematuria, no increased frequency, no urinary urgency, and no nocturia;kidney stones. He reportsarthralgias/joint pain, back pain, and neck painbut reports no muscle aches, no muscle weakness, and no swelling in the extremities. He reportsdepressionbut reports no sleep disturbances, feeling safe in a relationship, no alcohol abuse, no anxiety, no hallucinations, and no suicidal thoughts. He reports no fever, no night sweats, no significant weight gain, no significant weight loss, and no exercise intolerance. He reports no dry eyes, no vision change, and no irritation. He reports no difficulty hearing and no ear pain. He reports no frequent nosebleeds, no nose problems, and no sinus problems. He reports no sore throat, no bleeding gums, no snoring, no dry mouth, no mouth ulcers, no oral abnormalities, and no teeth problems. He reports no cough, no wheezing, no shortness of breath, no coughing up blood, and no sleep apnea. He reports no abnormal mole, no jaundice, no rashes, and no laceration. He reports no loss of consciousness, no weakness, no numbness, no seizures, no dizziness, no migraines, no headaches, no tremor, and no tingling (paresthesia). He reports no fatigue. He reports no swollen glands, no bruising, and no excessive bleeding. He reports no runny nose, no sinus pressure, no itching, no hives, and no frequent sneezing. Physical ExamConstitutional:General Appearance: healthy-appearing and well-nourished. Level of Distress: no acute distress. Abdomen:Inspection and Palpation: no tenderness or masses. Hernia: none palpable. Male :Penis: no discharge or lesions. Scrotum: no lesions. Testes: normal testes. Seminal Vesicles: normal seminal vesicles. Rectal:Anus, Perineum, Rectum: normal tone and no masses. Prostate: not enlarged andtender.Procedure DocumentationNone recordedAssessment/Plan1. GewzuzdqrdeH34.9: Inflammatory disease of prostate, unspecified URINALYSIS PANEL, AUTO - Specimen source: Urine clean catch doxycycline monohydrate 100 mg capsule - Take 1 capsule(s) twice a day by oral route for 15 days. Qty: (30) capsule Refills: 0 Pharmacy: [id number] 2. History of calculus of dzzkyjU60.442: Personal history of urinary calculi XR ABDOMEN KUB URINALYSIS PANEL, AUTO UA Auto/Manual RESULT REFERENCE RANGE SOURCE Clean Catch COLOR Yellow APPEARANCE Clear SPECIFIC GRAVITY 1.010 1.003-1.035 pH 7.0 5.0-8.0 LEUKOCYTE ESTERACE Negative Negative NITRITE Negative Negative PROTEIN Negative Negative GLUCOSE Normal Normal KETONES Negative Negative UROBILINOGEN 1 mg/dl Normal 1 mg/dl BILIRUBIN Negative Negative BLOOD Negative Negative Return to Office to see [facility] for DEVICE CHECK at [facility] on or around 06/30/2024 VAISHALI PICKETT MD for RECHECK at [facility] on 08/04/2024 at 10:00 AM [facility] 10:06:24 Procedures Surgical History Date Name Laterality Status Provider Name and Address Organization Details Recorded Time 03/15/20 24 Injection Carpal Tunnel completed KATE DELUNA MD [facility] [place], [address], [facility] 03/15/2024 08:39:43 02/16/20 24 Electromyography (EMG) with Nerve Conduction Study (NCV) completed Stella David (Nicky) [facility] 02/16/2024 13:44:09 02/02/20 24 Diabetic Foot Exam completed Keeley Wang [facility] 02/02/2024 10:02:16 07/16/20 23 Stress Test - Nuclear Lexiscan completed SYDNEE KEITH MD [address] [place] [address], [address], [facility] 07/17/2023 09:17:05 07/07/20 23 Airway Resistance completed [facility] 07/07/2023 11:09:40 07/07/20 23 Diffusion Capacity completed [facility] 07/07/2023 11:09:38 07/07/20 23 Lung Volumes, Plethysmography completed [facility] 07/07/2023 11:09:42 07/07/20 23 Demonstration Aerosol/Generator/N ebulizer/Optichambe r completed [facility] 07/07/2023 11:16:17 07/07/20 23 Spirometry with Bronchodilator completed [facility] 07/07/2023 11:16:22 07/03/20 23 EKG completed Ashley Cedillo [facility] 07/03/2023 14:48:47 06/20/20 22 EKG completed DIXON FREITAS PA-C [address] [place], [address], [facility] 06/20/2022 08:49:39 05/31/20 21 EKG [place], [address], [facility] 05/31/2021 12:42:16 06/09/20 17 EKG [place], [address], [facility] 06/09/2017 13:01:50 05/19/20 17 [place]ocardiogram [place] [address] [place] [address], [phone] [place] [address] 05/19/2017 15:19:56 03/07/20 15 Cardiac Catheterization completed Clarisa Sutherland [facility] 06/09/2017 10:04:19 Cholecystectomy completed Lupe Phan [facility] 09/25/2016 11:38:50 tonsillectomy completed Jessica Charles [facility] 06/10/2024 14:13:55 Imaging Results None recorded. Procedure Notes None recorded. Medical Equipment None Reported. Allergies Allergen ID Allergen Name Allergen Category Reaction Reaction Severity Criticality Documentation Date Start Date Code Code System Note Provider Name and Address Organization Details Recorded Time 456038 Product containin g penicilli n (product) medicatio n Not available Not available Not available 07/26/20162010 95480 8001 SNOMED Comme nt: Creat ed By: Meli de la paz;Cr eated Date: 07/22 11:36 :01 AM; Not Available [facility] 6 06:04:04 [id number] Oxycontin medicatio n Not available Not available Not available 07/26/20162010 81774 6 RxNorm Comme nt: Creat ed By: Meli Bruce en;Cr eated Date: 07/22 11:36 :08 AM; Not Available [facility] 6 09:10:46 Medications Name Sig Start Date Stop Date Status Note LastModified by Organization Details LastModified Time Compound Magic Mouthwash ([employer] FM #2) (Equal parts viscous lidocaine 2%, maalox, benadryl 12.5mg/5m L, prednisol one 15mg/5mL, nystatin oral suspensio n) 10 ml swish and spit before meals and as needed x 10 days 10/11 completed Not Available Not Available Not Available cyclobenz aprine 10 mg tablet TAKE 1 TABLET 3 TIMES A DAY BY ORAL ROUTE NEEDED. active Not Available Not Available No t Available pramipexo le 1 mg tablet TAKE 1 & 1/2 TABLETS BY MOUTH EVERY DAY IN THE EVENING NEEDED active Not Available Not Available No t Available Flomax 0.4 mg capsule Take 1 capsule every day by oral route. 02/19 completed Not Available Not Available Not Available promethaz ine-DM 6.25 mg-15 mg/5 mL oral syrup TAKE 5ML BY MOUTH EVERY 8 hours as needed 02/25 completed Not Available Not Available Not Available carvedilo l 25 mg tablet TAKE 1 TABLET BY MOUTH TWICE A DAY active Not Available Not Available No t Available Carafate 1 gram tablet Take 1 tablet 4 times a day by oral route. 04/10 completed Stopped per pt Not Available Not Available Not Available hydrocodo ne 5 mg-acetam inophen 325 mg tablet Take 1 tablet every 6 hours by oral route. 2022 active Not Available Not Available Not Avai lable lisinopri l 20 mg tablet Bedtime 02/19 completed Duration : 30 days;Dawson quency: hs;Medic ation Descript ion: lisinopr il; Dosage:1 ; Route:or al; refills: 5; Quantity :30 tablet Not Available Not Available Not Available ondansetr on HCl 4 mg tablet TAKE 1 TABLET BY MOUTH 3 TIMES A DAY NEEDED. 10/11 completed Not Available Not Available Not Available famotidin e 40 mg tablet TAKE 1 TABLET BY MOUTH EVERY EVENING NEEDED active Not Available Not Available No t Available sertralin e 100 mg tablet TAKE 1 & 1/2 TABLETS BY MOUTH DAILY active Not Available Not Available No t Available Zithromax Z-Jerad 250 mg tablet TAKE 2 TABLETS (500 MG) BY ORAL ROUTE ONCE DAILY FOR 1 DAY THEN 1 TABLET (250 MG) BY ORAL ROUTE ONCE DAILY FOR 4 DAYS 12/14 completed Not Available Not Available Not Available Neurontin 600 mg tablet Take 1 tablet twice a day by oral route. 11/23 completed Not Available Not Available Not Available Nexium 40 mg capsule,d elayed release Take 1 capsule as needed by oral route in the evening. 2023 active Not Available Not Available Not Avai lable metronida zole 500 mg tablet Take 1 tablet every 8 hours by oral route with meals for 10 days. 06/18 completed Not Available Not Available Not Available chlorthal idone 25 mg tablet TAKE 1 TABLET BY MOUTH EVERY DAY 2023 active Not Available Not Available Not Avai lable doxepin 10 mg capsule TAKE 1 CAPSULE BY MOUTH EVERY EVENING NEEDED 03/18 completed Not Available Not Available Not Available ciproflox acin 500 mg tablet Take 1 tablet twice a day by oral route with meals for 10 days. 03/18 completed Not Available Not Available Not Available Florinef 0.1 mg tablet 09/30 completed Duration : 10 days;Med ication Descript ion: fludroco rtisone; Route:or al; refills: 0; Quantity :30 tablet Not Available Not Available Not Available hydrocort isone acetate 25 mg rectal supposito ry Insert 1 supposit ory twice a day by rectal route for 10 days. 05/31 completed Not Available Not Available Not Available pramipexo le 0.5 mg tablet TAKE 2 TABLETS BY MOUTH AT BEDTIME 07/03 completed Not Available Not Available Not Available Mobic 15 mg tablet Daily 09/30 completed Frequenc y: daily;Me dication Descript ion: meloxica m; Dosage:1 ; Route:or al; refills: 5; Quantity :30 tablet Not Available Not Available Not Available Ziac 10 mg-6.25 mg tablet Daily 09/30 completed Frequenc y: daily;Me dication Descript ion: bisoprol ol-hydro chloroth iazide; Dosage:1 ; Route:or al; refills: 5; Quantity :30 tablet Not Available Not Available Not Available Zoloft 50 mg tablet Take 1 tablet every day by oral route. 02/19 completed Not Available Not Available Not Available trazodone 100 mg tablet TAKE 2 TABLETS BY MOUTH NEEDED AT BEDTIME active Not Available Not Available No t Available ropinirol e 0.25 mg tablet TAKE 1 TABLET BY MOUTH ONCE DAILY FOR 2 DAYS, THEN INCREASE TO 2 TABLETS DAILY 2024 active Not Available Not Available Not Avai lable diazepam 2 mg tablet Take 1 tablet by oral route. 11/07 completed Not Available Not Available Not Available benzonata te 100 mg capsule TAKE 1 TO 2 CAPSULES BY MOUTH 3 TIMES A DAY NEEDED 07/03 completed Not Available Not Available Not Available doxycycli ne monohydra te 100 mg capsule Take 1 capsule twice a day by oral route for 15 days. 2023 active Not Available Not Available Not Avai lable Lasix 20 mg tablet Take 1 tablet every day by oral route. 02/19 completed Not Available Not Available Not Available Prozac 20 mg capsule Daily 09/30 completed Frequenc y: daily;Me dication Descript ion: fluoxeti ne; Dosage:1 ; Route:or al; refills: 0; Quantity :30 capsule Not Available Not Available Not Available testoster one 100 mg/mL intramusc ular suspensio n 150mg every 10 days 02/19 completed Not Available Not Available Not Available Proctofoa m HC 1 %-1 % Insert 1 applicat ion every day by rectal route for 10 days. 05/31 completed Not Available Not Available Not Available lisinopri l 10 mg tablet TAKE 1 TABLET BY MOUTH EVERY DAY active Not Available Not Available No t Available docusate sodium 100 mg capsule TAKE 1 CAPSULE BY MOUTH EVERY DAY active Not Available Not Available No t Available buspirone 7.5 mg tablet TAKE 1 TABLET BY MOUTH TWICE A DAY 12/04 completed Not Available Not Available Not Available diclofena c sodium 75 mg tablet,de layed release TAKE 1 TABLET BY MOUTH TWICE A DAY NEEDED 2023 active Not Available Not Available Not Avai lable Neurontin 400 mg capsule Bedtime 09/30 completed Instruct ions: 1 hs for nerve pain. May ^ q 7d if needed to 2 hs; 1 am, 2 hs; 2 am, 2 hs ;Frequen cy: hs;Medic ation Descript ion: gabapent in; Dosage:1 ; Route:or al; refills: 5; Quantity :30 capsule Not Available Not Available Not Available lisinopri l 5 mg tablet TAKE 1 TABLET BY MOUTH EVERY DAY 02/01 completed Not Available Not Available Not Available hydrochlo rothiazid e 25 mg tablet Take 1 tablet every day by oral route. 02/19 completed Not Available Not Available Not Available diazepam 10 mg tablet Three times a day 02/19 completed Duration : 10 days;Ins truction s: 1 tablet three times daily as needed for spasm ;Frequen cy: tid;Alt Frequenc y: as direct.; Medicati on Descript ion: diazepam ; Dosage:1 ; Route:or al; refills: 0; Quantity :30 tablet Not Available Not Available Not Available testoster one cypionate 200 mg/mL intramusc ular oil Inject by intramus cular route for 28 days. 07/03 completed Not Available Not Available Not Available albuterol sulfate HFA 90 mcg/actua tion aerosol inhaler INHALE 2 PUFFS 4 TIMES A DAY NEEDED. 2021 active Not Available Not Available Not Avai lable Vitamin D2 1,250 mcg (50,000 unit) capsule TAKE 1 CAPSULE (50,000 UNIT) BY ORAL ROUTE twice weekly 02/19 completed Not Available Not Available Not Available ondansetr on 4 mg disintegr ating tablet DISSOLVE 1 TABLET UNDER THE TONGUE EVERY 8 HOURS FOR 5 DAYS NEEDED active Not Available Not Available No t Available fluticaso ne propionat e 50 mcg/actua tion nasal spray,[employer] [employer] SPRAY 1 SPRAY BY INTRANAS AL ROUTE EVERY DAY active Not Available Not Available No t Available metformin ER 500 mg tablet,ex tended release 24 hr TAKE 4 TABLETS BY MOUTH EVERY DAY AT BEDTIME active Not Available Not Available No t Available doxycycli ne hyclate 100 mg tablet TAKE 1 TABLET BY MOUTH TWICE A DAY FOR 14 DAYS 06/10 completed Not Available Not Available Not Available naproxen 500 mg tablet Take 1 tablet twice a day by oral route. 04/10 completed Stopped per pt Not Available Not Available Not Available buspirone 15 mg tablet Take 1 tablet twice a day by oral route. 03/18 completed Not Available Not Available Not Available rosuvasta tin 10 mg tablet TAKE 1 TABLET BY MOUTH EVERY DAY IN THE EVENING active Not Available Not Available No t Available Wellbutri n XL 300 mg 24 hr tablet, extended release Take 1 tablet every day by oral route. 2023 active Not Available Not Available Not Avai lable potassium chloride Daily 11/07 completed Frequenc y: daily;Me dication Descript ion: potassiu m chloride ; Dosage:1 ; refills: 5; Quantity :30 Not Available Not Available Not Available testoster one injectio ns every 10 days 11/23 completed Not Available Not Available Not Available Lasix 11/07 completed Not Available Not Available Not Available carvedilo l 02/19 completed Medicati on Descript ion: carvedil ol; Route:or al; refills: 0 Not Available Not Available Not Available trazodone 50mg qhs 11/23 completed Medicati on Descript ion: trazodon e; refills: 0 Not Available Not Available Not Available amlodipin e-benazep ril 09/30 completed Medicati on Descript ion: amlodipi ne; Route:or al; refills: 0 Not Available Not Available Not Available Methadone Two times a day 09/30 completed Frequenc y: bid;Medi cation Descript ion: methadon e; Dosage:1 ; Route:or al; refills: 0; Quantity :60 tablet Not Available Not Available Not Available Savella 09/30 completed Medicati on Descript ion: milnacip ran; Route:or al; refills: 0 Not Available Not Available Not Available Calmosept ine 0.44 %-20.6 % topical ointment Apply 1 applicat ion twice a day by topical route for 10 days. 05/31 completed Not Available Not Available Not Available Vascepa 1 gram capsule TAKE 2 CAPSULES BY MOUTH TWICE A DAY 05/05 completed Not Available Not Available Not Available Ozempic 0.25 mg or 0.5 mg (2 mg/1.5 mL) subcutane ous pen injector Inject 0.5 mg every 72 hours by subcutan eous route in the evening for 28 days. 02/01 completed Not Available Not Available Not Available Clenpiq 10 mg-3.5 gram-12 gram/160 mL oral solution DIRECTED 02/25 completed Not Available Not Available Not Available Ozempic 1 mg/dose (4 mg/3 mL) subcutane ous pen injector 0.25 mg SC qwk x4wk, then incr. to 0.5 mg SC qwk x 4 weeks , then may incr. to 1 mg SC qwk after that 2023 active Not Available Not Available Not Avai lable Wegovy 1 mg/0.5 mL subcutane ous pen injector 0.25 mg SQ q week x 4 weeks then 0.5 mg SQ Q week x 4 weeks then 1 mg SQ Q week x 4 weeks 01/20 completed Not Available Not Available Not Available Wegovy 0.25 mg/0.5 mL subcutane ous pen injector 0.25 mg SQ q week x 4 weeks then 0.5 mg SQ Q week x 4 weeks then 1 mg SQ Q week x 4 weeks 01/20 completed Not Available Not Available Not Available Wegovy 0.5 mg/0.5 mL subcutane ous pen injector 0.25 mg SQ q week x 4 weeks then 0.5 mg SQ Q week x 4 weeks then 1 mg SQ Q week x 4 weeks 01/20 completed Not Available Not Available Not Available Paxlovid 300 mg (150 mg x 2)-100 mg tablets in a dose pack Take 1 dose pk twice a day by oral route for 5 days. 07/03 completed Not Available Not Available Not Available Ozempic 0.25 mg or 0.5 mg (2 mg/3 mL) subcutane ous pen injector 0.25 mg SC qwk x4wk, then incr. to 0.5 mg SC qwk x 4 weeks , then may incr. to 1 mg SC qwk after that 2023 active Not Available Not Available Not Avai lable Vitals Date Recorded Body height Body mass index (BMI) Body weight Heart rate Oxygen saturation Oxygen saturation in Arterial blood by Pulse oximetry Systolic And Diastolic Provider Name and Address Organization Details Last Updated DateTime 4 190.5 cm 39.7 kg/m2 642384. 37 g 88 /min 97 % 97 % 122/78 mm[Hg] Lakisha Pearl [facility] 4 13:59:06 Date Recorded Body height Body mass index (BMI) Body weight Pain severity - 0-10 verbal numeric rating [Score] - Reported Provider Name and Address Organization Details Last Updated DateTime 03/15/2024 190.5 cm 40 kg/m2 655833.56 g 6 Doris Martinezon [facility] 03/15/2024 08:20:11 Date Recorded Body height Body mass index (BMI) Body weight Body temperature Heart rate Respiratory rate Systolic And Diastolic Provider Name and Address Organization Details Last Updated DateTime 4 190.5 cm 41.6 kg/m2 857372. 47 g 96.9 [degF] 79 /min 12 /min 118/80 mm[Hg] Benita Mosqueda [facility] 4 09:03:56 Date Recorded Body height Body mass index (BMI) Body weight Provider Name and Address Organization Details Last Updated DateTime 06/10/2024 190.5 cm 39.4 kg/m2 335932.6 g Jessica Charles [facility] 06/10/2024 14:13:19 Social History Question Answer Notes LastModified by Organizat ion Details LastModified Time Tobacco Smoking Status Never [facility]/2016 11:38:42 Do You Have An Advance Directive? No Information not available 01/20/2023 What Is Your Level Of Caffeine Consumption? Moderate [email or web address] Information not available 12/14/2021 How Much Tobacco Do You Chew? None [email or web address] Information not available 02/19/2019 Are You Deaf Or Do You Have Serious Difficulty Hearing? No [email or web address] Information not available 01/20/2023 What Type Of Diet Are You Following? REGULAR [email or web address] Information not available 10/11/2021 Marital Status [email or web address] Informatio n not available 02/19/2019 What Was The Date Of Your Most Recent Tobacco Screening? 03/15/2024 [email or web address] Information not available 03/15/2024 How Many Children Do You Have? 1 [email or web address] Information not available 05/31/2021 What Is Your Relationship Status? [email or web address] Information not available 05/31/2021 Do You Use Your Seat Belt Or Car Seat Routinely? Yes Information not available 01/20/2023 Do You Have Smoke And Carbon Monoxide Detectors In Your Home? Yes Information not available 01/20/2023 Are There Any Smokers In Your House? No [email or web address] Information not available 01/20/2023 Do You Use Sunscreen Routinely? No [email or web address] Information not available 01/20/2023 Has Tobacco Cessation Counseling Been Provided? No Information not available 07/03/2023 Have You Recently Traveled Abroad? No [email or web address] Information not available 05/31/2021 Sex: Male Functional Status Question Answer Note LastModified by Organizat ion Details LastModified Time Do you use any illicit or recreational drugs? No [email or web address] Information not available 06/20/2022 Do you or have you ever used any other forms of tobacco or nicotine? No [email or web address] Information not available 04/10/2021 What is your level of alcohol consumption? None [email or web address] Information not available 09/25/2016 Are you currently employed? Yes [email or web address] Information not available 01/20/2023 Are you able to care for yourself independently? 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 Moderate [email or web address] Information not available 10/11/2021 Mental Status None recorded. Family History Relationship Description Onset Age of this Age Resolved Age Notes LastModified by Organization Details LastModified Time Unspecified Relation Diabetes mellitus [email or web address] Not available 2016 11:38:31 Unspecified Relation Family history of malignant neoplasm grandf naldo [email or web address] Not available 06/10/2024 14:13:45 Medical History Condition Response Kidney Stones Y Depression Y Anxiety Disorder Y Arthritis Y Acid Reflux (GERD) Y High Cholesterol Y Diabetes Y Hypertension Y Immunizations Vaccine Type Date Status Note Provider Nam e and Address Organization Details Recorded Time Td (adult), 2 Lf tetanus toxoid, preservative free, adsorbed 8 completed MD Stacey [address] [place] [address], [phone], [facility] 02/02/2024 09:51:00 COVID-19, mRNA, LNP-S, PF, 100 mcg/0.5mL dose or 50 mcg/0.25mL dose 1 completed [email or web address] 10/18/2020 14:03:35 COVID-19, mRNA, LNP-S, PF, 100 mcg/0.5mL dose or 50 mcg/0.25mL dose 1 completed [facility] 11/15/2020 09:29:15 Tdap 1 completed [email or web address] 12/26/2020 09:24:28 Hep A, adult 9 [place] [address] [place] [address], [phone], [facility] 10/18/2022 10:23:31 Influenza, split virus, quadrivalent, preservative 0 completed VAISHALI PICKETT MD [address] [place] [address], [address], [facility] 10/18/2022 10:23:31 Hep A, adult 4 [place], [address], [facility] 02/03/2024 20:51:23 Influenza, split virus, quadrivalent, preservative 1 completed VAISHALI PICKETT MD [address] [place], [address], [facility] 10/18/2022 10:23:31 Influenza, split virus, trivalent, PF 4 completed VAISHALI PICKETT MD [address] [place], [address], [facility] 05/06/2024 21:08:31 COVID-19, mRNA, LNP-S, PF, rajinder-sucrose, 30 mcg/0.3 mL 4 [place] [address] [place] [address], [address], [facility] 05/06/2024 21:08:31 Hep B, adolescent or pediatric 0 completed VAISHALI PICKETT MD [address] [place] [address], [address], [facility] 10/18/2022 10:23:31 Hep B, adolescent/high risk infant 8 completed VAISHALI PICKETT MD [address] [place] [address] [place], [address], [facility] 10/18/2022 10:23:31 Hep B, adolescent/high risk infant 8 completed VAISHALI PICKETT MD [address] [place] [address] [place], [address], [facility] 10/18/2022 10:23:31 Influenza, split virus, quadrivalent, PF 7 completed VAISHALI PICKETT MD [address] [place] [address] [place], [address], [facility] 10/18/2022 10:23:31 Past Encounters Encounter ID Performer Location Encounter Start Date Encounter Closed Date Diagnosis/Indication Diagnosis SNOMED-CT Code Diagnosis ICD10 Code Diagnosis Note [id number] JERAD NAYAK JR, MD [place] [id number] [place] [address] 09/25/2016 10:18:07 09/25/2016 12:08:26 Chronic prostatitis [id number] N41.1 [id number] GUADALUPE ROSALES MD [facility]CHO [facility] [place] [address] 05/19/2017 14:35:50 05/19/2017 15:23:51 Syncope [id number] R55 [id number] DIXON FREITAS PA-C CARDIOLOG Y [address] [place] [address] 06/09/2017 09:20:05 06/09/2017 13:15:15 Syncope [id number] R55 [id number] JHON CONDE MD [facility] [address] [place] [address] 06/27/2017 10:03:46 06/27/2017 13:45:57 Syncope [id number] R55 [id number] GUADALUPE CLEMENS MD PULMONARY [address] [place] [address], [address] [place], [place] [address] 09/30/2017 12:42:14 09/30/2017 17:10:42 Obstructive sleep apnea of adult [id number] 103 G47.33 The patient has moderately severe obstructiv e sleep apnea.He has had a good subjective response to treatment with CPAP.we have contacted his [employer] to get a download from his CPAP Chip and also to check the machine to see if it is broken.The patient may need a new CPAP machine. Pressure changes may be indicated. I'll contact him regarding further follow-up when we get the download.D ate. 10/22/2017. The baseline sleep study done in October 2011 at [facility] showed a mixed pattern of sleep apnea. He had 187 episodes of hypopnea, 25 episodes of obstructiv e apnea and 78 episodes of central apnea. He had associated nocturnal hypoxemia. The patient was noted to snore during the study.the overall AHI was 48.He is current auto SV machine is broken. It cannot be repaired.T he patient was set up with BiPAP 16/8 cm with heated humidity.h e will need to have an overnight pulse oximetry study done when he has adjusted to wearing BiPAP. He may need supplement al oxygen. [id number] CARLA GRIFFIN MD GASTRO SB [address] [facility], [address] [place] [address] 02/19/2019 11:56:55 02/23/2019 14:44:18 [id number] KELI VILLEGAS PA-C PULMONARY [address] [place] [address], [address] [place] [address] 02/25/2019 13:27:08 02/26/2019 06:48:59 Obstructive sleep apnea of adult 1898529854 103 G47.33 continue CPAP at current settings. Patient does obtain clinical benefit from CPAP. Residual AHI is optimal. patient is compliant with CPAP. [id number] ELIU RICHARDS MD SURGERY SCHEDULE [address] [place] [address] 03/08/2019 10:49:52 03/08/2019 10:53:03 [id number] JEANNETTE GUAJARDO MD [facility] [address] [place] [address] 10/07/2019 12:25:48 10/07/2019 12:54:21 Prostatitis 0889781 N41.9 [id number] VAISHALI PICKETT MD [place] [address] 10/23/2020 08:15:59 10/23/2020 09:08:18 Essential hypertension 42193620 I10 Nausea, vo miting and diarrhea 1339547 R11.2 Gastroesop hageal reflux disease without esophagitis 470842387 K21.9 Complex re gional pain syndrome of lower limb 961401403 G90.529 Obstructiv e sleep apnea syndrome 24762729 G47.33 Insomnia 494338759 G47.0 0 Mixed anxi ety and depressive disorder 409132458 F41.8 Restless legs 93231342 G 25.81 Nasal congestion 3525895 0 R09.81 Acute pharyngitis 841256 003 J02.9 Testostero ne level below reference range 358509636 R79.89 Diarrhea 42865617 R19.7 [id number] VAISHALI PICKETT MD [facility] [address] [address] 11/07/2020 14:47:44 11/07/2020 15:45:06 Night sweats 62950747 R61 Mixed anxi ety and depressive disorder 467044669 F41.8 Essential hypertension 20151075 I10 Insomnia 666627587 G47.0 0 Restless legs 03658584 G 25.81 Gastroesop hageal reflux disease without esophagitis 270010172 K21.9 Allergic rhinitis 028387 04 J30.9 Nausea, vo miting and diarrhea 5804864 R11.2 [id number] HOLLIS GORDON MD SAME DAY [facility] CLOSED [address] [place] [address] 11/15/2020 08:57:23 11/15/2020 08:57:53 [id number] VAISHALI PICKETT MD [facility] [address] [place] [address] 11/24/2020 07:59:11 11/24/2020 08:50:55 Night sweats 05371871 R61 Aphthous u lcer of mouth 994863439 K12.0 Obstructiv e sleep apnea syndrome 41534364 G47.33 Insomnia 332693341 G47.0 0 Allergic rhinitis 515106 04 J30.9 Mixed anxi ety and depressive disorder 070895063 F41.8 Restless legs 55903490 G 25.81 Chronic back pain 600403 002 G89.29 [id number] CARY MEJIA MD ENDOCRINO LOGY SB [address] [place] [address] 12/04/2020 09:32:09 12/04/2020 10:46:10 Male hypogonadism 87290589 E29.1 New consultati on hypogonadi sm Previously on intramuscu lar testostero ne replacemen t therapy about 5 years ago No labs available Unaware of any diagnostic workup showing a specific cause of hypogonadi sm Recurrence of hypogonada l symptoms off testostero ne replacemen t therapy On physical exam he doesn't have gynecomast ia or testicular masses. Had a discussion about hypogonadi sm pathophysi ology of primary versus secondary, manifestat ions, diagnostic workup including pituitary MRI, testostero ne replacemen t therapy benefits and side effects including am not limited to increased risk of erythrocyt osis, blood clots, worsening obstructiv e sleep apnea. He verbalized understand ing and interested in restarting testostero ne replacemen t therapy if indicated. George obtained and reviewed Controlled substance agreement sign Start intramuscu lar testostero ne replacemen t therapy as appropriat e pending laboratory workup detailed below. 3 months follow-up visit with labs Patient verbalized understand ing and agreed with the above mentioned plan of care. I would like to thank Dr Pickett for the opportunit y to participat e in the care of this patient. [id number] ALONZO ZHONG MD PAIN MEDICINE CLOSED [address] [place] [address] 12/14/2020 11:10:01 12/14/2020 12:39:23 Neuropathic pain 292310089 M79.2 Myofascial pain 01775492 9 M79.10 Complex re gional pain syndrome 295784808 G90.187 [id number] VAISHALI PICKETT MD FAMILY [place] [address] 12/26/2020 08:33:28 12/26/2020 09:25:50 Adult health examination 505375206 Z00.00 Obstructiv e sleep apnea syndrome 83833205 G47.33 Insomnia 378458636 G47.0 0 Allergic rhinitis 664073 04 J30.9 Mixed anxi ety and depressive disorder 964581538 F41.8 Restless legs 16585662 G 25.81 Chronic back pain 010827 002 G89.29 Obesity 403871658 E66.9 Gastroesop hageal reflux disease without esophagitis 406548751 K21.9 [id number] [place] [address] 01/01/2021 16:07:21 01/02/2021 07:52:10 Dysuria 21659037 R30.9 Diarrhea 08780687 R19.7 Acute prostatitis 609850 02 N41.0 Hematochezia 598667260 K 92.1 [id number] CARY MEJIA MD ENDOCRINO LOGY SB [address] [place] [address] 04/02/2021 10:51:09 04/02/2021 13:24:06 Male hypogonadism 02269167 E29.1 Follow-up hypogonadi sm Significan t improvemen t in his hypogonada l symptoms No side effects related testostero ne replacemen t therapy Missed his last dose Recommenda tions:Cont inue testostero ne cypionate 200 mg intramuscu lar every 2 weeksLab work including testostero ne midway between 2 injections George obtained and reviewed Benefits and side effects discussed with patient Patient verbalized understand ing and agreed with the above mentioned plan of care. [id number] VAISHALI PICKETT MD FAMILY MED[facility]INE [address] [address] 03/26/2021 13:29:14 03/26/2021 14:42:10 Diarrhea 03586959 R19.7 Abdominal pain 59683797 R10.9 Dysuria 89601874 R30.9 Gastroesop hageal reflux disease without esophagitis 214239242 K21.9 Nausea 151743845 R11.0 [id number] ELIU RICHARDS MD GASTRO SB [address] [place] [address] 04/03/2021 14:38:02 04/04/2021 12:15:31 Diarrhea 01524041 R19.7 R19.5 Will arrange flex-sig for evaluation of rectal pain and blood in stoolsStar t hydrocorti sone suppositor ySamples given for xifaxan 550 mg BID x 6 days to try Rectal pain 25033061 K62 .89 Liver enzy mes level above reference range 356522539 R74.01 Will check hepatitis panel, ferritin, iron saturation , ultrasound of liver. I suspect fatty liver. [id number] ALONZO ZHONG MD PAIN MEDICINE CLOSED [address] 1 04/09/2021 08:14:24 04/09/2021 09:45:02 Neuropathic pain 896409699 M79.2 Myofascial pain 15319679 9 M79.10 Cervico-oc cipital neuralgia 74334054 M54.81 [id number] KELI VILLEGAS PA-C PULMONARY [address] [facility], [place] [address] 04/10/2021 09:13:44 04/10/2021 11:53:19 Mixed sleep apnea 410649086 G47.39 patient has been having more daytime sleepiness and fatigue.he has restless sleep. His residual AHI is 8.3 which is slightly elevated but much improved from baseline. I will do an overnight pulse ox on BiPAP to ensure that he is not having continued hypoxemia. There is not a mask leak. Patient is compliant. patient will have an overnight pulse oximetry on room air with CPAP. If oxygen saturation is 88% or below for 5 minutes or more, he will need 2 liters per minute of oxygen with CPAP. Restless legs 86551248 G 25.81 he may need an increase in Mirapex dosing. will set up with new bipap and check overnight pulse ox before any other changes. Continue Mirapex 0.5 mg daily. [id number] ELIU RICHARDS MD SURGERY SCHEDULE [address] [place] [address] 04/27/2021 07:44:59 04/27/2021 07:45:32 [id number] DIXON FREITAS PA-C CARDIOLOG Y EAST [address] [place] [address],[address] [place] [address] 05/31/2021 11:32:40 05/31/2021 13:47:05 Paroxysmal supraventricular tachycardia 22226585 I47.1 stable on carvedilol 25 mg twice a day Vasovagal syncope 313721 005 R55 continue beta sharifa Renewal of prescription 552401417 Z76.0 Hypertensive disorder 38 114198 I10 emphasized medication compliance . Low-sodium diet. Increased exercise and weight loss [id number] VAISHALI PICKETT MD [facility] [place] [address] 10/04/2021 07:59:24 10/04/2021 08:56:55 Restless legs 22764859 G25.81 Obstructiv e sleep apnea syndrome 95842848 G47.33 Insomnia 308765152 G47.0 0 Allergic rhinitis 812115 04 J30.9 Mixed anxi ety and depressive disorder 480566320 F41.8 Chronic back pain 870788 002 G89.29 Obesity 141902239 E66.9 Gastroesop hageal reflux disease without esophagitis 268601960 K21.9 [id number] VAISHALI PICKETT MD [facility] [place] [address] 10/11/2021 13:20:09 10/11/2021 14:14:42 Low back pain 387090665 M54.50 [id number] VAISHALI PICKETT MD [facility] [place] [address] [place] [address] 10/31/2021 10:11:28 10/31/2021 12:20:36 Acute pharyngitis 117842003 J02.9 Otalgia 06065010 H92.03 Acute sinusitis 63904878 J01.90 Allergic rhinitis 146929 04 J30.9 [id number] VAISHALI PICKETT MD [address] [address] 12/14/2021 10:07:03 12/14/2021 11:37:42 Acute sinusitis 68385325 J01.90 Acute bronchitis 3500721 2 J20.9 Allergic rhinitis 833616 04 J30.9 Cough 35703232 R05.9 Hyperglycemia 01641099 R 73.9 [id number] CARY MEJIA MD ENDOCRINO LOGY [address] [place] [address] 12/17/2021 10:42:23 12/17/2021 11:40:47 Prediabetes 682369949 R73.03 A1c of 6.2% on 12/14/2021 I counseled patient about the importance of intensive lifestyle modificati ons in the form of weight loss [targettin g 7 % body weight loss, moderate intensity exercise i.e brisk walking at least 150 minutes a week ] in patient with increased risk of diabetes [ IGT/IFG or A1C 5.7-6.4 %] which has been shown to reduce risk of future diabetes by about 50% in clinical trials .Fasting point-of-c are blood glucose of 125 Male hypogonadism 232570 06 E29.1 Follow-up hypogonadi sm Recurrence of hypogonada l symptoms No side effects related testostero ne replacemen t therapy Recommenda tions:Cont inue testostero ne cypionate 200 mg intramuscu lar every 2 weeksLab work including testostero ne midway between 2 injections [ Friday, December 26] Benefits and side effects rediscusse d with patient Patient verbalized understand ing and agreed with the above mentioned plan of care. [id number] VAISHALI PICKETT MD [address] [address] 01/15/2022 09:34:59 01/15/2022 11:12:49 Acute sinusitis 64881301 J01.90 Acute bronchitis 4798368 2 J20.9 Allergic rhinitis 376633 04 J30.9 COVID-19 290153134 U07.1 [id number] VAISHALI PICKETT MD [address] [address] 01/17/2022 14:16:46 01/17/2022 16:55:27 COVID-19 661290251 U07.1 [id number] VAISHALI PICKETT MD [address] [address] 02/26/2022 09:05:21 02/26/2022 10:24:54 Adult health examination 042702636 Z00.00 Restless legs 56202116 G 25.81 Obstructiv e sleep apnea syndrome 99126200 G47.33 Insomnia 297948476 G47.0 0 Allergic rhinitis 853835 04 J30.9 Mixed anxi ety and depressive disorder 634604267 F41.8 Chronic back pain 331145 002 G89.29 Obesity 178563560 E66.9 Gastroesop hageal reflux disease without esophagitis 639772323 K21.9 Prediabetes 880481189 R7 3.03 [id number] VAISHALI PICKETT MD [address] [address] 05/17/2022 08:05:28 05/17/2022 09:38:30 Acute upper respiratory infection 14928435 J06.9 COVID-19 872614321 U07.1 [id number] CARY MEJIA MD ENDOCRINO LOGY SB [address] [place] [address] 06/17/2022 10:14:59 06/17/2022 10:57:06 Prediabetes 994360655 R73.03 A1c of 5.6 down from 6.2% on 12/14/2021 I mauricio d patient about the importance of intensive lifestyle modificati ons in the form of weight loss [targettin g 7 % body weight loss, moderate intensity exercise i.e brisk walking at least 150 minutes a week ] in patient with increased risk of diabetes [ IGT/IFG or A1C 5.7-6.4 %] which has been shown to reduce risk of future diabetes by about 50% in clinical trials .Fasting point-of-c are blood glucose of 125 Continue metformin extended release 4 tablets daily Male hypogonadism 903240 06 E29.1 Follow-up hypogonadi sm Recurrence of hypogonada l symptoms Unable to afford intramuscu lar injection i.e. $50 co-pay Provided patient with a being coupon from good Rx prescripti ons Recommenda tions:Star t testostero ne cypionate 200 mg intramuscu lar every 2 weeksLab work including testostero ne midway between 2 injections Benefits and side effects aubrey trinh with patient Patient verbalized understand ing and agreed with the above mentioned plan of care. [id number] DIXON FREITAS PA-C CARDIOLOG Y [address] [place] [address] 06/20/2022 07:59:53 06/20/2022 09:04:25 Obese 300947453 E66.9 Paroxysmal supraventricular tachycardia 41869604 I47.1 stable on carvedilol 25 mg twice a day Vasovagal syncope 110704 005 R55 continue beta sharifa Hypertensive disorder 38 537268 I10 emphasized medication compliance . Low-sodium diet. Increased exercise and weight loss [id number] VAISHALI PICKETT MD FAMILY MEDICINE [address] [address] 10/18/2022 09:48:49 10/18/2022 11:40:10 Night sweats 30649481 R61 Restless legs 99454276 G 25.81 Obstructiv e sleep apnea syndrome 60376349 G47.33 Insomnia 494553926 G47.0 0 Allergic rhinitis 676640 04 J30.9 Mixed anxi ety and depressive disorder 640080459 F41.8 Chronic back pain 322649 002 G89.29 Obesity 513184709 E66.9 Gastroesop hageal reflux disease without esophagitis 466117190 K21.9 Prediabetes 401481625 R7 3.03 Cough 93598562 R05.9 Acute sinusitis 52843580 J01.90 Acute bronchitis 2239450 2 J20.9 Excessive sweating 92480 005 R61 [id number] CARY MEJIA MD ENDOCRINO LOGY SB [address] [place] [address] 12/16/2022 07:43:32 12/16/2022 08:27:15 Prediabetes 216754743 R73.03 A1c of 6.1 from 5.6I recounsele d patient about the importance of intensive lifestyle modificati ons in the form of weight loss [targettin g 7 % body weight loss, moderate intensity exercise i.e brisk walking at least 150 minutes a week ] in patient with increased risk of diabetes [ IGT/IFG or A1C 5.7-6.4 %] which has been shown to reduce risk of future diabetes by about 50% in clinical trials .Fasting point-of-c are blood glucose of 125Continu e metformin extended release 4 tablets daily Male hypogonadism 638943 06 E29.1 Follow-up hypogonadi sm Improved hypogonada l symptoms while on testostero ne placement therapy No side effects related to testostero ne placement therapy Recommenda tions:Cont inue testostero ne cypionate 200 mg intramuscu lar every 2 weeks at presentTot al testostero ne and CBC todayBenef its and side effects aubrey trinh with patientKas per obtained and reviewed Morbid obesity 071735376 E66.01 BMI of 40.4 and weight of 332He will qualifies pharmacolo gic therapy criteria We had a discussion about the importance of lifestyle interventi on i.e. start low-calori e diet and activity Consider pharmacolo gic therapy next office visit as appropriat e Patient verbalized understand ing and agreed with the above mentioned plan of care. [id number] PAULY VERGARA PA-C [facility] [place] [address] [place] [address] 01/20/2023 13:19:14 01/20/2023 16:11:42 Body mass index 30+ - obesity 561340672 Z68.39 Insomnia 185367131 G47.0 0 states doxepin has not helped at all would prefer the trazodone; he was taking 150mg qhs before. rec he f/u with PCP next mo to discuss Nausea, vo miting and diarrhea 1696481 R11.2 zofran prn as directed Gastroesop hageal reflux disease 975561685 K21.9 continue nexiumcont inue famotidine dailyreche ck h pylori Acute diarrhea 833623594 R19.7 Low back pain 874635316 M54.50 out of flexeril. takes daily for chronic back pain. tid prn. he states it does not make him drowsy. Diverticulitis 570176783 K57.92 suspect abdominal pain and diarrhea due to diverticul itis vs viral or bacterial gastroente ritis. Suspect rectal bleeding due to hemorrhoid ; pt declined exam. will monitor. also having UTI sx. could not leave sample today. feel cipro will help both issues, if present. He has tolerated well in past. avoid strenuous activity/h eavy lifting while taking. [id number] VAISHALI PICKETT MD [place] [address] 03/18/2023 11:24:54 03/18/2023 12:21:33 Mixed anxiety and depressive disorder 782092128 F41.8 Low back pain 805288299 M54.50 Insomnia 277562532 G47.0 0 Gastroesop hageal reflux disease without esophagitis 099631641 K21.9 Allergic rhinitis 248603 04 J30.9 Restless legs 14034379 G 25.81 Essential hypertension 47352260 I10 Morbid obesity 631835249 E66.01 [id number] JADA CRAIG, SENIOR ANALYST [employer] [facility] CLOS[facility] [address] [place] [address] 06/11/2023 13:18:48 06/16/2023 14:40:01 Lumbar radiculopathy 120883925 M54.16 Lumbar spondylosis 80991 0009 M47.896 Chronic pain syndrome 37 3764996 G89.4 [id number] VAISHALI PICKETT MD [facility] [place] [address] 06/18/2023 13:55:53 06/18/2023 15:15:16 Mixed anxiety and depressive disorder 936329402 F41.8 Low back pain 930036440 M54.50 Insomnia 883976114 G47.0 0 Gastroesop hageal reflux disease without esophagitis 936134598 K21.9 Allergic rhinitis 960908 04 J30.9 Restless legs 35342364 G 25.81 Essential hypertension 08427366 I10 Morbid obesity 542518636 E66.01 Cough 97348804 R05.9 Nausea, vo miting and diarrhea 9607808 R11.2 COVID-19 525075337 U07.1 [id number] CARY MEJIA MD ENDOCRINO LOGY [address] [place] [address] 06/16/2023 08:02:03 06/16/2023 08:43:56 Male hypogonadism 29103839 E29.1 Recurrence of hypogonada l symptoms off testostero ne placement therapyRec heck total testostero ne and CBC today Recommenda tions:Tota l testostero ne and CBC todayResta rt testostero ne cypionate 200 mg intramuscu lar every 2 weeks as appropriat e pending lab result Benefits and side effects rediscusse d with patientPat ient verbalized understand ing and agreed with the above mentioned plan of care. Type 2 chaitanya betes mellitus without complication 568582868 E11.9 A1c of 6.6 up from 6.1 from 5.6Percent glycemic control and based on his A1c he is currently qualifies criteria for diabetes. Would expect A1c to be higher being on metformin therapySta rt Ozempic 0.25 mg subcu weekly for 4 weeks to be increased to higher dose of 0.5 mg thereafter Benefits and side effects including but not limited to increased risk of gastrointe stinal side effects, rare side effects such as acute pancreatit is discussed with patient in detail. He denies any personal or family history of medullary thyroid cancer or multiple endocrine neoplasia type IIVerbaliz ed understand ing and agreed to start therapyPro vided with a 6-week free medical sentContin ue metformin extended release 4 tablets daily.Fiona brown ACRLipid panel and CMP [id number] JENNA ROSAELS MD NEUROS[facility]G [facility] CL[facility] [address] [place] [address] 07/02/2023 08:14:06 07/03/2023 04:29:26 Low back pain 905654238 M54.50 I am happy to change his battery for him. We can do [facility] at the [facility]. He would like the battery pocket to be revised and more superiorly placed. I instructed him I am happy to do this if surgically feasible intraopera tively. I have outlined the risk and benefits associate with surgery. He is elected to proceed. We will get this done as soon as possible. [id number] SYDNEE KEITH MD CARDIOLOG Y [address] ,[address] [place] [address] 07/03/2023 14:46:51 07/03/2023 16:04:15 Obesity 443593726 E66.9 Dyspnea on exertion 6084 5006 R06.09 Cardiopulm onary evaluation will be performed to rule out potential contributi on to his dyspnea which clinically I think is due to morbid obesity and deconditio stephanie. proBNP, chest x-ray, echo, stress test, and pulmonary function testing will be obtained. Hyperlipidemia 45713505 E78.5 Patient meets criteria for institutio n of Vascepa therapy. Tachycardia 1389531 R00. 0 A cardiac event monitor will be placed Hypertensive disorder 38 935466 I10 Further blood pressure control will include increasing the lisinopril to 10 mg a day and adding chlorthali done 25 mg a day. [id number] SYDNEE KEITH MD HEART STATION [address] ,[address] [place] [address] 07/03/2023 15:33:38 07/03/2023 15:33:59 [id number] ELPIDIO ZHANG MD PULMONARY [address] [facility], [address] [place] [address] 07/07/2023 10:45:23 07/08/2023 08:24:23 Dyspnea on exertion 40179417 R06.09 Pulmonary function studies dated 07/07/2023: Baseline spirometry shows mild to moderate restrictio n with an FEV1 of 3.0 L or 60% of predictedF VC is 4.0 L or 64% of predicted, this gives a ratio of 75% compared to the [id number] bronchodil ator therapy there is no significan t changeLung volumes show the residual volume at 98% of predicted and the TLC at 76% of predicted giving a ratio 129%This suggests that there is an obstructiv e component to the deficit noted on spirometry Diffusion capacity is well preserved at 89% predicted Impression :Predomina ntly restrictiv e physiology but there does appear to be an obstructiv e component given the lung volumesA trial of bronchodil ator therapy is reasonable [id number] SYDNEE KEITH MD [facility] [address] [place] [address],[address] [place] [address] 07/16/2023 11:35:49 07/18/2023 09:10:43 [id number] JENNA ROSALES MD SURGERY SCHEDULE [address] [place] [address] 07/18/2023 10:56:16 07/18/2023 10:58:28 Low back pain 124292300 M54.50 Procedure performed: [employer] Dorsal column stimulator battery replacemen t with pocket revision Preoperati ve diagnosis chronic low back pain Postoperat rosales diagnosis: Chronic low back pain Surgeon: Jenna Rosales MD assisted living executive director: Corwin Noble PA-C Anesthesia : General endotrache al anesthesia Specimens: None Drains: None Complicati ons: none acute Indication for procedure: Patient is a 37-year-ol d gentleman with a long extensive history of a dorsal column stimulator placement. He has had good relief with the [employer] . He needs a new battery change. The risk and benefits of surgery were discussed with him and he elected to proceed. Descriptio n of the procedure: After the patient was identified in the preoperati ve area by name and medical record number consent was noted to be in chart. He was taken back to the operating room and general endotrache al anesthesia was initiated by the anesthesio logy service. He is placed in the operative table in the prone position. All pressure points are padded. SCDs were in place. He was prepped and draped in usual sterile fashion. A timeout was performed and was correct. Confirmati on of perioperat rosales antibiotic s was given. The incision was opened sharply with a 15 blade. His care down soft tissues and Bovie electrocau aide. We identified the battery and removed it using a Rodríguez instrument . We released the left leg first and secured it to the new battery. We then did this on the opposing side. The [employer] rep then interrogat ed and leads were in contact in good position. We then closed off the space of the previous pocket using 0 Vicryl sutures. We then created a space using Bovie electrocau aide and Metzenbaum scissors more superior and flipped the battery ensuring the lettering was on the anterior surface of the skin. The pocket fit nicely. We anchored it to the deep tissue using a silk size suture. We then closed the deep tissue layers using interrupte d 0 Vicryl suture. The wound was then closed using interrupte d 2-0 Vicryl suture. This was followed by running Monocryl and Dermabond. All sharps needle sponge counts were correct at the end of the case. No intraopera tive complicati ons were noted. Patient was transferre d to the PACU with anticipate d discharge home orders. Corwin Noble PA-C was present and scrubbed for the entirety of this procedure. Postoperative care 86011 9007 Z48.89 [id number] VAISHALI PICKETT MD [facility] [address] [address] 02/02/2024 09:13:05 02/02/2024 10:08:38 Adult health examination [id number] Z00.00 Gastroesop hageal reflux disease without esophagitis 233449179 K21.9 Mixed anxi ety and depressive disorder 518516018 F41.8 Low back pain 579916927 M54.50 Insomnia 299605436 G47.0 0 Allergic rhinitis 254084 04 J30.9 Restless legs 61593482 G 25.81 Essential hypertension 83210992 I10 Morbid obesity 966128321 E66.01 Nausea and vomiting 1693 2000 R11.2 Obstructiv e sleep apnea syndrome 06404376 G47.33 Type 2 chaitanya betes mellitus without complication 780994098 E11.9 Nausea, vo miting and diarrhea 3316579 R11.2 Paresthesia of hand 3090 23953 R20.2 [id number] MELCHOR RAMIREZ MD NEUROLOGY [facility] [address] [address] [place] [address] 02/16/2024 12:14:51 02/17/2024 05:06:08 Carpal tunnel syndrome of left wrist 0682200581 24915 G56.02 Paresthesi a of bilateral hands 856734899 R20.2 Pain in left thumb 40086 62255 736732 M79.645 Pain in right thumb 1076 220661 869569 M79.644 [id number] KELI VILLEGAS PA-C PULMONARY [address], [address] [place] [address] 03/02/2024 13:44:17 03/03/2024 08:07:10 Mixed sleep apnea 595069263 G47.39 He is very compliant with BiPAP. Residual AHI is optimal. Being fatigued during the day which is probably related to his restless leg syndrome. patient will have an overnight pulse oximetry on room air with BIPAP. If oxygen saturation is 88% or below for 5 minutes or more, he will need 2 liters per minute of oxygen with BIPAP. Restless legs 17948393 G 25.81 I changed him to Requip to see if this helps more than the Mirapex. He will discontinu e Mirapex and start Requip [id number] KATE DELUNA MD [facility] [address] [address] 03/15/2024 07:55:05 03/15/2024 09:17:24 Carpal tunnel syndrome of left wrist 4030221848 74295 G56.02 diagnostic injection (symptoms atypical R/S as well as TIL) f/u 6 weeks Osteoarthr osis of the carpometacarpal joint of the thumb 52336355 M18.9 hbtss, f/u 6 weeks with xrays [id number] VAISHALI PICKETT MD [facility] [address] [address] 05/04/2024 08:45:42 05/04/2024 10:02:36 Gastroesophageal reflux disease without esophagitis 615460251 K21.9 Mixed anxi ety and depressive disorder 873733518 F41.8 Low back pain 042314237 M54.50 Insomnia 135562182 G47.0 0 Allergic rhinitis 199863 04 J30.9 Restless legs 73765897 G 25.81 Essential hypertension 70039738 I10 Morbid obesity 326233483 E66.01 Nausea and vomiting 1693 2000 R11.2 Obstructiv e sleep apnea syndrome 82215849 G47.33 Type 2 chaitanya betes mellitus without complication 782432667 E11.9 Carpal nubia mir syndrome of left wrist 3017577383 10471 G56.02 Administra tion of influenza vaccine 66863946 Z23 Active or passive immunization 486570112 Z23 Increased frequency of urination 041164838 R35.0 Acute prostatitis 493192 02 N41.0 Mixed hyperlipidemia 267 666203 E78.2 [id number] JERAD NAYAK JR, MD [facility] [address] [place] [address] 06/10/2024 09:00:35 06/10/2024 16:46:42 Prostatitis 8521173 N41.9 History of calculus of kidney 980258217 Z87.442 Health Concerns Section Related Observation LastModified by Organization Detai ls LastModified Time None Recorded Concern Status LastModified by Organization Details LastModified Time None Recorded Advance Directives Directive N: Payers Insurance Date Sequence Insurance Name Policy Number Policy Melchor Covered Member ID Melchor Member ID Guarantor Name 12/15/2023 1 [place] [id number] Abena Shanks [id number] Trini Shanks 01/11/2025 PAYMENT PLAN Po Shanks 08/01/2024 1 [facility] [id number] Abena Shanks [id number] Po Shanks 08/01/2024 2 [place] Po Shanks [id number] Po Shanks 11/05/2018 1 *SELF PAY* Keyon Shanks 11/03/2021 1 [place] Shanks [id number] Po Shanks 11/03/2021 1 [facility] [id number] Abena Shanks [id number] Po Shanks 10/18/2022 1 [place] [id number] Abena Shanks [id number] Po Shanks 11/21/2021 2 [place] Po Shanks [id number] Po Shanks 08/01/2024 [employer] - DMEPOS ASSIGNED (MEDIC[place] [facility] Po Shanks [id number] Po Shanks 11/03/2021 1 [facility] [id number] Abena Shanks [id number] Po Shanks
== END 2025-03-28 23:59 | disposition home or self-care (01) ==
LOC: LAB.DROPOF 03-29 12:26
PROVIDERS: PCP Family Medicine; Visit Provider Family Medicine
DX: M54.50 Low back pain, unspecified (principal)
CPT/HCPCS: 87086